=== PATIENT | male | born 1970 | race Caucasian/White ===

== ENCOUNTER 2016-08-16 08:34 | Observation (INO) | payer BC ==
[~2016-08-16] VITALS: Ht 185.4 cm; Wt 54.4 kg
[~2016-08-16 08:34] MED LIST: CLC100 PO; CRG25 PO; DIGO0.2518 PO; LISI-461 PO; TRIA37.5 PO; VALA1TAB PO
[2016-08-16] MEDS ORDERED: SODIUM CHLORIDE 0.9% 1000ML 1,000 ML IV STA (08:56)
[2016-08-16] MEDS ORDERED: HYDROmorphone INJ 1 MG/ML SYR IV STA ×3 (09:07→11:52)
--- NOTE | 2016-08-16 09:10 | EMERGENCY ROOM VISIT NOTE ---
History Report prepared by Sarina: Jewel Lima Under the Supervision of: Dr. Sven Asif M.D. First contact with patient: 08:43 Chief Complaint: BACK PAIN Stated Complaint: LOWER BACK PAIN History of Present Illness The patient is a 45 year old male who presents to the Emergency Room with complaints of persistent back pain that began 9 days ago following an injury while golfing. The patient states that he was golfing nine days prior to this visit when he tweaked his lower back. He then sneezed one day later, which he believes worsened the severity of his back injury. His pain is now worsened with range of motion. He also complains of pain radiating down his legs into his knees, which is worse on the left. The patient is experiencing some weakness in his lower extremities as well. He denies any loss of urinary or bowel control. He notes a history of lumbar back pain and he has been seeing a Chiropractor regularly for the past 6-7 years. The patient is on Coumadin and Digoxin daily. He has taken 5 Extra Strength Tylenol since last night. 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 A total of 10 systems reviewed and were otherwise negative. Past Medical & Surgical Medical Problems: (1) Hx of aortic valve stenosis (2) Hx of congestive heart failure Surgical Problems: (1) Hx of stentless aortic valve replacement Hx of congestive heart failure Family History No pertinent family histories discussed. Social History Smoking Status: Never Smoker Drug Use: none Marital Status: Housing Status: lives with significant other Current/Historical Medications Scheduled Aspirin (Aspirin Ec), 81 MG PO DAILY Carvedilol (Coreg), 25 MG PO BID Cholecalciferol (Vitamin D), 1,000 UNITS PO DAILY Digoxin (Digoxin), 25 MG PO DAILY Lisinopril (Zestril), 10 MG PO DAILY Sertraline (Zoloft), 25 MG PO DAILY Triamterene/Hctz (Dyazide 37.5MG/25MG), 1 TAB PO MAC Valacyclovir (Valtrex), 500 MG PO DAILY Allergies Coded Allergies: No Known Allergies (Unverified , 08/16/16) Physical Exam Vital Signs Date Time Temp Pulse Resp B/P Pulse Ox O2 Delivery O2 Flow Rate FiO2 08/16/16 11:30 59 16 119/60 98 Room Air 08/16/16 09:59 94 Room Air 08/16/16 09:58 58 18 107/68 94 Room Air 08/16/16 08:37 36.4 60 16 112/68 100 Room Air Physical Exam GENERAL: Patient is uncomfortable appearing and in moderate distress. HEENT: No acute trauma, normocephalic atraumatic, mucous membranes moist, no nasal congestion, no scleral icterus. NECK: No stridor, no adenopathy, no meningismus, trachea is midline. LUNGS: No dyspnea. Clear to auscultation and equal bilaterally. No wheeze, no rhonchi. HEART: Regular rate and rhythm. There is an audible click to auscultation. No murmurs, rubs, gallops appreciated. ABDOMEN: Soft, nontender, bowel sounds positive, no masses appreciated, no peritonitis. BACK: There is point tenderness over the lower lumbar midline spine. Mild tenderness of the left upper buttock. EXTREMITIES: Normal motion all extremities, no cyanosis, no edema. NEUROLOGIC: There is weakness of the left quad. Alert and oriented, no acute motor or sensory deficits, cranial nerves grossly intact. SKIN: No rash, no jaundice, no diaphoresis. Medical Decision & Procedures ER Provider Diagnostic Interpretation: Radiology results and stated below per my review and radiologist interpretation: LUMBAR SPINE MRI WITH AND WITHOUT CONTRAST HISTORY: low back pain, left quad weakness, perineal discomfort, coumadin TECHNIQUE: Multiplanar multisequence MRI of the lumbar spine was performed both before and after the intravenous administration of contrast. COMPARISON: None. FINDINGS: For the purpose of the report the L5-S1 disc space will be located on axial image 27 of 30. No fracture or subluxation. Mild disc desiccation disc space narrowing L4-L5 and L5-S1. The conus terminates at the T12-L1 disc space. Paraspinal soft tissues are unremarkable. No abnormal enhancement. L1-L2: No significant central canal or neural foraminal narrowing. L2-L3: No significant central canal or neural foraminal narrowing. L3-L4: No significant central canal or neural foraminal narrowing. L4-L5: Small focal central disc protrusion which abuts the transiting left L5 nerve root. No significant central canal or neural foraminal narrowing. L5-S1: Small broad-based posterior disc bulge without significant central canal or neural foraminal narrowing. IMPRESSION: 1. No fracture or subluxation within the lumbar spine. 2. Small focal central disc protrusion at L4-L5 which abuts the transiting left L5 nerve root. Electronically signed by: Kaleb Pittman M.D. 08/16/2016 11:34 AM Dictated Date/Time: 08/16/2016 11:29 AM Laboratory Results 08/16/16 09:05 Red Blood Count 4.52, Mean Corpuscular Volume 88.9, Mean Corpuscular Hemoglobin 30.5, Mean Corpuscular Hemoglobin Concent 34.3, Mean Platelet Volume 10.1, Neutrophils (%) (Auto) 67.2, Lymphocytes (%) (Auto) 21.3, Monocytes (%) (Auto) 7.8, Eosinophils (%) (Auto) 2.9, Basophils (%) (Auto) 0.6, Neutrophils # (Auto) 4.16, Lymphocytes # (Auto) 1.32, Monocytes # (Auto) 0.48, Eosinophils # (Auto) 0.18, Basophils # (Auto) 0.04 08/16/16 09:05 Test 08/16/16 09:05 White Blood Count 6.19 K/uL (4.8-10.8) Red Blood Count 4.52 M/uL (4.7-6.1) Hemoglobin 13.8 g/dL (14.0-18.0) Hematocrit 40.2 % (42-52) Mean Corpuscular Volume 88.9 fL (80-100) Mean Corpuscular Hemoglobin 30.5 pg (25-34) Mean Corpuscular Hemoglobin Concent 34.3 g/dl (32-36) Platelet Count 150 K/uL (130-400) Mean Platelet Volume 10.1 fL (7.4-10.4) Neutrophils (%) (Auto) 67.2 % Lymphocytes (%) (Auto) 21.3 % Monocytes (%) (Auto) 7.8 % Eosinophils (%) (Auto) 2.9 % Basophils (%) (Auto) 0.6 % Neutrophils # (Auto) 4.16 K/uL (1.4-6.5) Lymphocytes # (Auto) 1.32 K/uL (1.2-3.4) Monocytes # (Auto) 0.48 K/uL (0.11-0.59) Eosinophils # (Auto) 0.18 K/uL (0-0.5) Basophils # (Auto) 0.04 K/uL (0-0.2) RDW Standard Deviation 48.0 fL (36.4-46.3) RDW Coefficient of Variation 14.7 % (11.5-14.5) Immature Granulocyte % (Auto) 0.2 % Immature Granulocyte # (Auto) 0.01 K/uL (0.00-0.02) Prothrombin Time 44.0 SECONDS (9.0-12.0) Prothromb Time International Ratio 3.9 (0.9-1.1) Anion Gap 8.0 mmol/L (3-11) Est Creatinine Clear Calc Drug Dose 75.6 ml/min Estimated GFR () 112.2 Estimated GFR (Non- 96.8 BUN/Creatinine Ratio 18.4 (10-20) Calcium Level 8.8 mg/dl (8.5-10.1) Digoxin Level 1.0 ng/ml (0.8-2.0) Laboratory results as reviewed by me. Medications Administered Medications (Trade) Dose Ordered Sig/Ania Route Start Time Stop Time Status Last Admin Dose Admin Sodium Chloride (Nss 1000ml) 1,000 ml @ 999 mls/hr Q1H1M STAT IV 08/16/16 08:56 08/16/16 09:56 DC 08/16/16 09:11 999 MLS/HR Hydromorphone HCl (Dilaudid Inj) 1 mg NOW STAT IV 08/16/16 09:07 08/16/16 09:08 DC 08/16/16 09:11 1 MG Diazepam (Valium Inj) 5 mg NOW STAT IV 08/16/16 09:50 08/16/16 09:51 DC 08/16/16 09:56 5 MG Hydromorphone HCl (Dilaudid Inj) 1 mg NOW STAT IV 08/16/16 11:30 08/16/16 11:31 DC 08/16/16 11:33 1 MG Hydromorphone HCl (Dilaudid Inj) 1 mg NOW STAT IV 08/16/16 11:52 08/16/16 11:53 DC 08/16/16 12:12 1 MG Methylprednisolone Sodium Succinate (Solu-Medrol IV) 125 mg NOW STAT IV 08/16/16 11:52 08/16/16 11:53 DC 08/16/16 12:06 125 MG ED Course 0846: The patient was evaluated in room B10. A complete history and physical exam was performed. 0856: Ordered Sodium Chloride 1000 mL @ 999 mL/hr IV. 0907: Ordered Dilaudid Inj 1 mg IV. 0948: I checked on the patient at this time, his pain is improved, but he has increased spasm of the left leg. 0950: Ordered Valium 5 mg IV. 1130: Ordered Dilaudid 1 mg IV. 1149: I reevaluated the patient at this time, he is still too uncomfortable to go home. I will place a page for the [facility] Hospitalist. 1152: Ordered Solu-Medrol 125 mg IV, Dilaudid 1 mg IV. 1154: I placed a page for the [facility] Hospitalist at this time. 1156: I discussed the case with Dr. Noel Hill [facility] Hospitalist at this time, he will evaluate the patient for further treatment Medical Decision Blood pressure screening: Patient was found to have an elevated blood pressure and was referred to their primary doctor for recheck and further treatment. Blood pressure screening: Patient was found to have normal blood pressure on screening and does not require follow-up. Differential: Musculoskeletal, Disc Herniation, Fracture, Cord Compression, Discitis, Infectious, Aortic Pathology, Renal Colic, UTI/Pyelonephritis, Acute Exacerbation of Chronic Pain, Sciatica, Cauda Equina, amongst other pathologies entertained. 45 yr old male with left lower back pain radiating to left thigh. Does have TTP over lower lumbar midline spine. Questionable weakness of left quad, though normal strength otherwise and may be pain related. Unable to control pain. With history felt that MRI w wo con required to rule out acute surgical emergency. MRI with left L5 disc that while mild is likely cause of symptoms. No abdominal pain nor evidence that this is due to retroperitoneal bleeding nor aortic pathology. After multiple rounds of pain meds and discomfort will need to be evaluated for monitoring overnight as can not go home due to continued pain. IV steroids given. Hospitalist aware. Consults Time Called: 1154 Consulting Physician: Dr. Noel Hill [facility] Hospitalist Returned Call: 1156 I discussed the case with Dr. Cohen - [facility] Hospitalist at this time, he will evaluate the patient for further treatment Impression Primary Impression: Left sided sciatica Additional Impression: Intractable back pain Scribe Attestation The scribe's documentation has been prepared under my direction and personally reviewed by me in its entirety. I confirm that the note above accurately reflects all work, treatment, procedures, and medical decision making performed by me. Departure Information Dispostion Being Evaluated By Hospitalist Referrals Teja Hsu M.D. (PCP) Patient Instructions My [facility] [address] Problem Qualifiers
[2016-08-16 09:17] LABS: BASO % 0.6 %; BASO ABS # 0.04 K/uL (0-0.2); COMPLETE YES; EOS % 2.9 %; HEMATOCRIT 40.2 % (42-52); IG% 0.2 %; LYMPH % 21.3 %; LYMPH ABS # 1.32 K/uL (1.2-3.4); MEAN CELL VOLUME 88.9 fL (80-100); MEAN CORPUSCULAR HEMOGLOBIN 30.5 pg (25-34); MEAN CORPUSCULAR HGB CONC 34.3 g/dl (32-36); MEAN PLATELET VOLUME 10.1 fL (7.4-10.4); MONO % 7.8 %; NEUT % 67.2 %; PLATELET COUNT 150 K/uL (130-400); RED BLOOD COUNT 4.52 M/uL (4.7-6.1); WHITE BLOOD COUNT 6.19 K/uL (4.8-10.8)
[2016-08-16] MEDS ORDERED: CHOL100010 PO (09:21)
[2016-08-16] MEDS ORDERED: SERT25TA PO (09:21)
[2016-08-16] MEDS ORDERED: VALA500T60 PO (09:21)
[2016-08-16] MEDS ORDERED: CARV25TA PO (09:21)
[2016-08-16] MEDS ORDERED: ASPI81TA28 PO (09:21)
[2016-08-16] MEDS ORDERED: LNX25 PO (09:21)
[2016-08-16 09:30] LABS: BUN/CREATININE RATIO 18.4 (10-20); CREATININE 0.94 mg/dl (0.60-1.40)
[2016-08-16 09:31] LABS: CALCIUM 8.8 mg/dl (8.5-10.1)
[2016-08-16 09:38] LABS: INR 3.9 (0.9-1.1)
[2016-08-16] MEDS ORDERED: DIAZEPAM INJ 5 MG/ML 2 ML CARP IV STA (09:50)
[2016-08-16] MEDS ORDERED: GADAVIST IV PRN (10:45)
--- NOTE | 2016-08-16 11:35 | DIAGNOSTIC IMAGING REPORT ---
LUMBAR SPINE MRI WITH AND WITHOUT CONTRAST HISTORY: low back pain, left quad weakness, perineal discomfort, coumadin TECHNIQUE: Multiplanar multisequence MRI of the lumbar spine was performed both before and after the intravenous administration of contrast. COMPARISON: None. FINDINGS: For the purpose of the report the L5-S1 disc space will be located on axial image 27 of 30. No fracture or subluxation. Mild disc desiccation disc space narrowing L4-L5 and L5-S1. The conus terminates at the T12-L1 disc space. Paraspinal soft tissues are unremarkable. No abnormal enhancement. L1-L2: No significant central canal or neural foraminal narrowing. L2-L3: No significant central canal or neural foraminal narrowing. L3-L4: No significant central canal or neural foraminal narrowing. L4-L5: Small focal central disc protrusion which abuts the transiting left L5 nerve root. No significant central canal or neural foraminal narrowing. L5-S1: Small broad-based posterior disc bulge without significant central canal or neural foraminal narrowing. IMPRESSION: 1. No fracture or subluxation within the lumbar spine. 2. Small focal central disc protrusion at L4-L5 which abuts the transiting left L5 nerve root. Electronically signed by: Kaleb Pittman M.D. 08/16/2016 11:34 AM Dictated Date/Time: 08/16/2016 11:29 AM
[2016-08-16] MEDS ORDERED: METHYLPREDNISOLONE 125 MG VIAL IV STA (11:52)
--- NOTE | 2016-08-16 12:52 | History and Physical ---
History & Physical Date & Time of Service: August 16, 2016 at 12:41 Chief Complaint: Lower Back Pain Primary Care Physician: Teja Hsu M.D. History of Present Illness Source: patient, family This patient is a pleasant 45 y/o male that presents to the ER c/o back pain radiating to his left thigh for approximately 1 week. The patient played golf about a week ago. He noticed that his back was bothering him since then. The day after he played golf, he sneezed in the car. He felt excruciating pain in his back. It radiates down to the left thigh. He denies any numbness, tingling or weakness in his extremities. He does have pain in his groin. He denies any urinary or bowel incontinence. He has had problems with his back in the past and intermittently sees a chiropractor. He has tried Lidoderm with icy hot and Tylenol at home with no relief. In the emergency department, an MRI was performed. It is consistent with a disc bulge at L4-L5. No severe stenosis is noted. He received Dilaudid and Valium with decent pain relief. Past Medical/Surgical History Medical Problems: (1) Hx of aortic valve stenosis Status: Resolved s/p AVR with a mechanical valve 2. Last surgery was in 2004. A. fib (2) Hx of congestive heart failure Status: Chronic Surgical Problems: (1) Hx of stentless aortic valve replacement Status: Resolved Family History Patient's father and sister also had back problems. Social History Smoking Status: Never Smoker Drug Use: none Marital Status: Multi-Drug Resistant Organisms History of MDRO: No Allergies Coded Allergies: No Known Allergies (Unverified , 08/16/16) Home Medications Scheduled Aspirin (Aspirin Ec), 81 MG PO DAILY Carvedilol (Coreg), 25 MG PO BID Cholecalciferol (Vitamin D), 1,000 UNITS PO DAILY Digoxin (Digoxin), 25 MG PO DAILY Lisinopril (Zestril), 10 MG PO DAILY Sertraline (Zoloft), 25 MG PO DAILY Triamterene/Hctz (Dyazide 37.5MG/25MG), 1 TAB PO MAC Valacyclovir (Valtrex), 500 MG PO DAILY Physical Exam Vital Signs Date Time Temp Pulse Resp B/P Pulse Ox O2 Delivery O2 Flow Rate FiO2 08/16/16 11:30 59 16 119/60 98 Room Air 08/16/16 09:59 94 Room Air 08/16/16 09:58 58 18 107/68 94 Room Air 08/16/16 08:37 36.4 60 16 112/68 100 Room Air General Appearance: + moderate distress (in pain) Head: normocephalic Eyes: EOMI Neck: no JVD Respiratory/Chest: lungs clear Cardiovascular: + systolic murmur, + irregularly irregular Abdomen/GI: normal bowel sounds, non tender, soft Extremities/Musculoskelatal: no calf tenderness, no pedal edema Neurologic/Psych: no motor/sensory deficits, oriented x 3, + pertinent finding (neuro exam is limited secondary to pain) Skin: warm/dry Diagnostics Laboratory Results Results Past 24 Hours Test 08/16/16 09:05 Range/Units White Blood Count 6.19 4.8-10.8 K/uL Red Blood Count 4.52 4.7-6.1 M/uL Hemoglobin 13.8 14.0-18.0 g/dL Hematocrit 40.2 42-52 % Mean Corpuscular Volume 88.9 80-100 fL Mean Corpuscular Hemoglobin 30.5 25-34 pg Mean Corpuscular Hemoglobin Concent 34.3 32-36 g/dl Platelet Count 150 130-400 K/uL Mean Platelet Volume 10.1 7.4-10.4 fL Neutrophils (%) (Auto) 67.2 % Lymphocytes (%) (Auto) 21.3 % Monocytes (%) (Auto) 7.8 % Eosinophils (%) (Auto) 2.9 % Basophils (%) (Auto) 0.6 % Neutrophils # (Auto) 4.16 1.4-6.5 K/uL Lymphocytes # (Auto) 1.32 1.2-3.4 K/uL Monocytes # (Auto) 0.48 0.11-0.59 K/uL Eosinophils # (Auto) 0.18 0-0.5 K/uL Basophils # (Auto) 0.04 0-0.2 K/uL RDW Standard Deviation 48.0 36.4-46.3 fL RDW Coefficient of Variation 14.7 11.5-14.5 % Immature Granulocyte % (Auto) 0.2 % Immature Granulocyte # (Auto) 0.01 0.00-0.02 K/uL Prothrombin Time 44.0 9.0-12.0 SECONDS Prothromb Time International Ratio 3.9 0.9-1.1 Sodium Level 136 136-145 mmol/L Potassium Level 4.0 3.5-5.1 mmol/L Chloride Level 99 98-107 mmol/L Carbon Dioxide Level 29 21-32 mmol/L Anion Gap 8.0 3-11 mmol/L Blood Urea Nitrogen 17 7-18 mg/dl Creatinine 0.94 0.60-1.40 mg/dl Est Creatinine Clear Calc Drug Dose 75.6 ml/min Estimated GFR () 112.2 Estimated GFR (Non- 96.8 BUN/Creatinine Ratio 18.4 10-20 Random Glucose 144 70-99 mg/dl Calcium Level 8.8 8.5-10.1 mg/dl Digoxin Level 1.0 0.8-2.0 ng/ml Impression Assessment and Plan 45-year-old male presented to the emergency department complaining of severe lower back pain radiating to his left thigh. Found to have a mild disc protrusion L4-L5. Severe back pain/radiculopathy -Observe on medical floor -Orthopedic consult -Continue Dilaudid 1 mg IV every 3 hours as needed for pain -Begin Decadron 4 mg IV BID -Toradol 30 mg IV q 6 hr -Lidoderm patch -Flexeril 10 mg po TID prn -PT/OT eval History of aortic stenosis status post AVR, A. fib, rate controlled and history of congestive heart failure-no signs of decompensation -Continue outpatient regimen as follows: Carvedilol 25 mg BID, digoxin 0.25 mg daily, Dyazide daily, lisinopril 10 mg daily, aspirin 81 mg daily -hold today's dose of Coumadin as the patient's INR is supratherapeutic. Goal is 2.5-3.5 DVT prophylaxis -Coumadin -Teds, SCDs CODE STATUS -LEVEL I FULL CODE I agree with PA assessment and plan and have personally seen and examined pt myself Pt in moderate distress for lower back pain Noted tachycardia during exam Labs and MRI reviewed MSK: lower back pain tender on palpation Mild disc protrusion Orthopedics consulted Agree with pain management and decadron Hold coumadin for supratherapeutic INR, goal range 2.5-3.5 for mechanical valve Level of Care Med/Surg Resuscitation Status FULL RESUSCITATION VTE Prophylaxis Risk Level: Very Low Given or contraindicated: Warfarin (Coumadin), T.E.Lázaro Stockings, SCD's
[2016-08-16 12:55] VITALS: O2SAT 98; Ht 185.4 cm; Wt 54.4 kg
[2016-08-16] MEDS ORDERED: POLYETHYLENE (MIRALAX) 17 GM PACK PO PRN (13:00)
[2016-08-16] MEDS ORDERED: HYDROmorphone INJ 1 MG/ML SYR IV PRN (13:00)
[2016-08-16] MEDS ORDERED: ONDANSETRON INJ 2 MG/ML 2 ML VIAL IV PRN (13:00)
[2016-08-16] MEDS ORDERED: MAGNESIUM HYDROXIDE SUSP 30 ML UDC PO PRN (13:00)
[2016-08-16] MEDS ORDERED: ACETAMINOPHEN 325 MG TAB PO PRN (13:00)
[2016-08-16] MEDS ORDERED: CYCLOBENZAPRINE HCL 10 MG TAB PO PRN (13:00)
[2016-08-16] MEDS ORDERED: IV FLUIDS COMPLETED PRN (13:45)
[2016-08-16] MEDS: KETOROLAC TROMETHAMINE 30 MG/ML VIAL IV PRN (13:51)
[2016-08-16] MEDS ORDERED: CYCLOBENZAPRINE HCL 10 MG TAB ONE (13:55)
[2016-08-16 15:03] VITALS: BP 113/73; PULSE 73; TEMP 36.4; O2SAT 98
[2016-08-16 16:00] VITALS: O2SAT 98
[2016-08-16] MEDS ORDERED: DIGOXIN 0.25 MG TAB PO SCH (16:00)
[2016-08-16] MEDS: DEXAMETHASONE INJ 4 MG in SYRINGE 0 ML IV SCH (17:53)
[2016-08-16 20:30] VITALS: BP 111/72; PULSE 63; O2SAT 98
[2016-08-16] MEDS: CARVEDILOL 25 MG TAB PO SCH (20:34)
[2016-08-16 22:55] VITALS: BP 100/67; PULSE 80; TEMP 36.6; O2SAT 95
[2016-08-17] MEDS ORDERED: ZOLPIDEM TARTRATE 5 MG TAB PO PRN (00:30)
[2016-08-17] MEDS: DEXAMETHASONE INJ 4 MG in SYRINGE 0 ML IV SCH (05:29)
[2016-08-17] MEDS: KETOROLAC TROMETHAMINE 30 MG/ML VIAL IV PRN (05:51)
[2016-08-17 05:56] LABS: INR 3.8 (0.9-1.1); PROTHROMBIN TIME (PATIENT) 42.9 SECONDS (9.0-12.0)
[2016-08-17 06:17] LABS: BUN/CREATININE RATIO 20.2 (10-20); CALCIUM 8.6 mg/dl (8.5-10.1); CREATININE 0.68 mg/dl (0.60-1.40); POTASSIUM 3.9 mmol/L (3.5-5.1)
[2016-08-17 07:57] VITALS: BP 98/64; PULSE 78; TEMP 36.7; O2SAT 97
[2016-08-17 08:11] VITALS: O2SAT 97
--- NOTE | 2016-08-17 08:39 | ORTHOPEDIC CONSULTATION ---
DATE OF CONSULTATION: 08/17/2016 CHIEF COMPLAINT: Back and left anterior thigh pain. HISTORY OF PRESENT ILLNESS: This is a very pleasant 45-year-old male who had intermittent history of back pain over the years, marked increase in discomfort over the past week or so. It began with his knees about 10 days ago while driving. Then he was golfing recently also exacerbating back pain. He felt the pain across the lumbosacral junction and down the groin, anterior thigh on the left. It is not a classic radicular pattern. The right lower extremity is essentially asymptomatic. IMAGING: A lumbar spine 08/16/2016 MRI demonstrates evidence of modest disc desiccation protrusion at the 4-5, 5-1 levels. There is perhaps a hint of neural rotation secondary to some encroachment of the L4 root on the left. Overall, it is somewhat underwhelming. ASSESSMENT: Acute on chronic back pain. PLAN: At this time, see no indication for any surgical intervention. I would recommend we initiate physical therapy, anti-inflammatories only.
[2016-08-17] MEDS: CARVEDILOL 25 MG TAB PO SCH (08:58)
[2016-08-17] MEDS ORDERED: LIDODERM (LIDOCAINE) PATCH 5% TD SCH (09:00)
[2016-08-17] MEDS ORDERED: TRIAMTERENE/HCTZ 37.5/25MG CAP PO SCH (09:00)
[2016-08-17] MEDS ORDERED: LISINOPRIL 10 MG TAB PO SCH (09:00)
[2016-08-17] MEDS ORDERED: ASPIRIN 81 MG ECTAB PO SCH (09:00)
[2016-08-17] MEDS ORDERED: SERTRALINE HCL 50 MG TAB PO SCH (09:00)
[2016-08-17] MEDS ORDERED: LDDP5 TD (10:05)
[2016-08-17] MEDS ORDERED: CYCL5TAB PO (10:05)
[2016-08-17] MEDS ORDERED: OXYC-57 PO (10:05)
[2016-08-17] MEDS ORDERED: METH4PAK PO (10:05)
[2016-08-17] MEDS ORDERED: IBUP-1105 PO (10:05)
--- NOTE | 2016-08-17 10:13 | Discharge Instructions ---
Discharge Instructions Date of Service August 17, 2016. Admission Reason for Admission: Intractable Back Pain Discharge Discharge Diagnosis / Problem: Intractable back pain, minimal disc protrusion L4-L5 level Discharge Goals Goal(s): Decrease discomfort, Improve function, Increase independence Activity Recommendations Activity Limitations: resume your previous activity Lifting Limitations: no more than 5 pounds (for two weeks) Exercise/Sports Limitations: as tolerated May Resume Sexual Activity: when tolerated Shower/Bathe: no limitations Driving or Machine Use: do not drive after taking Flexeril OR Percocet . Instructions / Follow-Up Instructions / Follow-Up Medications: - MEDROL: follow instructions, you can take all of the day one tablets today and then start day 2 tomorrow, this is steroid taper to decrease inflammation - IBUPROFEN: 600mg (3 of the 200mg tablets) take three times a day with meals for the next 5 days then then just use as needed, always take with food - LIDODERM PATCH: apply once a day as prescribed, may be expensive depending on insurance coverage, you do not need to get filled if too expensive - FLEXERIL: take as needed for muscle spasms, will make you sleepy, do not drive after taking this medication, very effective at night to help sleep, you can take 10mg at bedtime if 5mg is not sufficient - PERCOCET: you can get this filled if the above medications are not sufficient to control the pain, take 1 tablet every 4 hours as needed for pain, DO NOT DRIVE, DO NOT TAKE MORE THAN PRESCRIBED Complete outpatient physical therapy, script provided, you can choose any location You can utilize heat but only use for 20 minutes at at time, 3-4 times a day, NEVER sleep with heating pad No heavy lifting, no bending or twisting to sheepskin pickler something FOLLOW UP - Dr. Hsu in one week, call to schedule an appointment to see how you are progressing - you can be referred to Dr. Diaz in the near future if the pain does not resolve with the above measures Current Hospital Diet Patient's current hospital diet: Low Sodium Diet (2gm Na) Discharge Diet Recommended Diet: Low Sodium Diet (2gm Na) Pending Studies Studies pending at discharge: no Medical Emergencies . Who to Call and When: Medical Emergencies: If at any time you feel your situation is an emergency, please call 911 immediately. . Non-Emergent Contact Non-Emergency issues call your: Primary Care Provider Call Non-Emergent contact if: your pain is not controlled, your pain is worsening, you have any medication questions . Past History Medical & Surgical History: (1) Intractable back pain . "Provider Documentation" section prepared by Mook Galeano. . VTE Core Measure Inpt VTE Proph given/why not?: Warfarin (Coumadin), T.E.DAngela Stockings, SCD's [place] Drug Monitoring Program Search Results: no issues identified
[2016-08-17 10:25] VITALS: BP 98/64; PULSE 78; TEMP 36.7; O2SAT 97
--- NOTE | 2016-08-17 14:47 | Discharge Summary ---
Discharge Summary Date of Service August 17, 2016. Discharge Summary Admission Date: August 16, 2016 at 12:58 Discharge Date: August 17, 2016 Discharge Disposition: Home Principal Diagnosis: Lumbar back pain Problems/Secondary Diagnoses: h/o Aortic valve replacement Paroxysmal atrial fibrillation h/o congestive heart failure, unknown type Procedures: none Consultations: Orthopedic surgery - Dr Diaz Medication Reconciliation New Medications: Cyclobenzaprine Hcl (Flexeril) 5 Mg Tab 5 MG PO TID PRN for Muscle Spasms, #30 TAB PRN Ibuprofen (Ibuprofen) 200 Mg Tab 600 MG PO TID PRN for Pain for 7 Days, #63 TAB 0 Refills Methylprednisolone (Medrol Dosepak) 4 Mg Earl 1 PKT PO UD for 6 Days, #1 PKT Oxycodone/Acetaminophen 5MG/325MG (Percocet 5MG/325MG) Tab 1 TABLET PO Q4H PRN for Pain, #20 TAB Lidocaine (Lidocaine) 1 Patch Tdsy 1 PATCH TD QAM, #14 PATCH 0 Refills Continued Medications: Aspirin (Aspirin Ec) 81 Mg Tab 81 MG PO DAILY Carvedilol (Coreg) 25 Mg Tab 25 MG PO BID, TAB Cholecalciferol (Vitamin D) 1,000 Unit Tab 1000 UNITS PO DAILY Digoxin (Digoxin) 0.25 Mg Tab 25 MG PO DAILY Lisinopril (Zestril) 10 Mg Tab 10 MG PO DAILY, 0 Refills Sertraline (Zoloft) 25 Mg Tab 25 MG PO DAILY, TAB Triamterene/Hctz (Dyazide 37.5MG/25MG) Cap 1 TAB PO MAC, 0 Refills Valacyclovir (Valtrex) 500 Mg Tab 500 MG PO DAILY, TAB Discharge Exam Patient feeling better this AM with Lidoderm patch, Decadron and Flexeril. Evaluated by orthopedics, no surgery needed, recommended physical therapy, pain control, rest. Discussed with patient, he was interested in getting out of hospital in the morning. Review of Systems: Constitutional: No chills, No fatigue, No fever, No problem reported, No sweats, No weakness, No weight loss Eyes: No diplopia, No discharge, No eye pain, No problem reported, No redness, No worsening of vision ENT: No dental problems, No hearing loss, No nasal symptoms, No problem reported, No sore throat, No tinnitus, No trouble swallowing, No unusual epistaxis Respiratory: No cough, No dyspnea at rest, No dyspnea on exertion, No hemoptysis, No problem reported, No shortness of breath, No sputum, No wheezing Cardiovascular: No PND, No chest pain, No claudication, No edema, No orthopnea, No palpitations, No problem reported Abdomen: No GI bleeding, No constipation, No diarrhea, No nausea, No pain, No problem reported, No vomiting Musculoskeletal: + joint pain (lower back, less intense), No calf pain, No muscle pain, No problem reported, No swelling Genitourinary - Male: No dysuria, No hematuria, No urinary frequency, No urinary urgency Neurologic: No balance problems, No memory loss, No numbness/tingling, No paralysis, No problem reported, No vertigo, No weakness Endocrine: No excessive thirst, No excessive urination, No fatigue, No problem reported Hematologic / Lymphatic: No abnormal bleeding/bruising, No clotting problems , No night sweats, No problem reported, No swollen lymph nodes Integumentary: No bleeding, No color change, No itch, No new/changing skin lesions, No problem reported, No rash Physical Exam: General Appearance: WD/WN, no apparent distress Eyes: normal inspection, EOMI, sclerae normal ENT: normal ENT inspection, hearing grossly normal, pharynx normal Neck: supple, no adenopathy, no JVD, trachea midline Respiratory/Chest: chest non-tender, lungs clear, normal breath sounds, no respiratory distress, no accessory muscle use Cardiovascular: regular rate, rhythm, no edema, no gallop, no JVD, no murmur , normal peripheral pulses Abdomen / GI: normal bowel sounds, non tender, soft, no organomegaly Extremities: normal inspection, no calf tenderness, normal capillary refill , no pedal edema, non-tender, pelvis stable, + pertinent finding (mild limited ROM of lumbar spine due to pain) Neurologic/Psychiatric: knife cutter II-XII nml as tested, no motor/sensory deficits , alert, normal mood/affect, normal reflexes, oriented x 3 Skin: normal color Hospital Course 45-year-old male presented to the emergency department complaining of severe lower back pain radiating to his left thigh. Found to have a mild disc protrusion L4-L5. Severe back pain in lumbar region: much improved overnight with treatment evaluated by Dr. Diaz, no need for surgery, disc protrusion is minimal, not impressive, no radiculopathy will d/c home on Medrol dose earl, Ibuprofen for 5 days, Lidoderm patch, Flexeril PRN and Percocet PRN outpatient PT, script provided can use heat intermittently instructed to rest, no lifting, bending, twisting follow up with Dr. Hsu in a week History of aortic stenosis status post AVR, A. fib, rate controlled and history of congestive heart failure-no signs of decompensation -Continue outpatient regimen as follows: Carvedilol 25 mg BID, digoxin 0.25 mg daily, Dyazide daily, lisinopril 10 mg daily, aspirin 81 mg daily Coumadin, Goal is 2.5-3.5 DVT prophylaxis -Coumadin -Teds, SCDs CODE STATUS -LEVEL I FULL CODE Total Time Spent: Less than 30 minutes This includes examination of the patient, discharge planning, medication reconciliation, and communication with other providers. Discharge Instructions Please refer to the electronic Patient Visit Report (Discharge Instructions) for additional information. Follow-Up Dr. Hsu in one week Additional Copies To Ta Diaz D.O.; Teja Hsu M.D.
== END 2016-08-17 12:30 | disposition home or self-care (01) ==
LOC: ENRESERVDT → ENRESERVTM → C.EDB 08:36 → C.3E 12:58
PROVIDERS: ADMIT Hospitalist; ATTEND Internal Medicine
DX: M54.42 Lumbago with sciatica, left side (principal); M51.26 Other intervertebral disc displacement, lumbar region; Z95.2 Presence of prosthetic heart valve; Z79.82 Long term (current) use of aspirin; I48.0 Paroxysmal atrial fibrillation

== ENCOUNTER 2017-03-29 21:02 | Inpatient (IN) | payer BC, OTHER ==
[~2017-03-29] VITALS: Ht 185.4 cm; Wt 67.5 kg
[~2017-03-29 21:02] MED LIST changes: +ASPI81TA28 PO; +CARV25TA PO; +CHOL100010 PO; -CLC100 PO; -CRG25 PO; -DIGO0.2518 PO; +IBUP-1105 PO; +LDDP5 TD; +LNX25 PO; +SERT25TA PO; -VALA1TAB PO; +VALA500T60 PO
[2017-03-29] MEDS ORDERED: SODIUM CHLORIDE 0.9% 500ML 500 ML IV STA (22:41)
[2017-03-29] MEDS ORDERED: ACETAMINOPHEN 500 MG TAB PO STA (22:41)
[2017-03-29] MEDS ORDERED: ALBUT/IPRATROP 3MG/0.5MG NEB 3 ML VIAL INH STA (22:46)
--- NOTE | 2017-03-29 23:02 | DIAGNOSTIC IMAGING REPORT ---
CHEST ONE VIEW PORTABLE CLINICAL HISTORY: Sepsis COMPARISON STUDY: No previous studies for comparison. FINDINGS: The heart is enlarged. There are postsurgical changes of a midline sternotomy and by bowel replacement. There are patchy airspace opacities within the right upper lobe, suspicious for pneumonia. Radiographic follow-up subsequent antibiotic therapy is recommended.[ IMPRESSION: Peripheral right upper lobe airspace opacities, suspicious for pneumonia given history of sepsis. Films subsequent to treatment are recommended in follow-up Electronically signed by: Jaren Armstrong M.D. 03/29/2017 11:00 PM Dictated Date/Time: 03/29/2017 10:59 PM
[2017-03-29] MEDS ORDERED: CEFTRIAXONE SOD INJ 1 GM ADDVIAL IV STA (23:16)
[2017-03-29 23:21] LABS: BASO % 0.3 %; BASO ABS # 0.02 K/uL (0-0.2); EOS % 1.9 %; EOS ABS # 0.14 K/uL (0-0.5); HEMATOCRIT 37.2 % (42-52); HEMOGLOBIN 12.5 g/dL (14.0-18.0); IG# 0.02 K/uL (0.00-0.02); LYMPH % 13.1 %; LYMPH ABS # 0.96 K/uL (1.2-3.4); MEAN CELL VOLUME 89.9 fL (80-100); MEAN CORPUSCULAR HEMOGLOBIN 30.2 pg (25-34); MEAN CORPUSCULAR HGB CONC 33.6 g/dl (32-36); MEAN PLATELET VOLUME 10.2 fL (7.4-10.4); MONO % 11.9 %; MONO ABS # 0.87 K/uL (0.11-0.59); NEUT % 72.5 %; PLATELET COUNT 135 K/uL (130-400); RED CELL DISTRIBUTION WIDTH CV 14.5 % (11.5-14.5); RED CELL DISTRIBUTION WIDTH SD 47.8 fL (36.4-46.3); WHITE BLOOD COUNT 7.31 K/uL (4.8-10.8)
[2017-03-29 23:34] LABS: INR 2.2 (0.9-1.1); PTT PATIENT 38.1 SECONDS (21.0-31.0)
[2017-03-29 23:48] LABS: ALBUMIN 3.7 gm/dl (3.4-5.0); ALT/SGPT 29 U/L (12-78); AST/SGOT 21 U/L (15-37); BLOOD UREA NITROGEN 16 mg/dl (7-18); CALCIUM 8.5 mg/dl (8.5-10.1); CARBON DIOXIDE 28 mmol/L (21-32); CREATININE 1.05 mg/dl (0.60-1.40); GLUCOSE 111 mg/dl (70-99); POTASSIUM 3.6 mmol/L (3.5-5.1); SODIUM 133 mmol/L (136-145)
[2017-03-29 23:52] LABS: ALKALINE PHOSPHATASE 61 U/L (45-117); TOTAL PROTEIN 7.6 gm/dl (6.4-8.2)
[2017-03-30] VITALS (7 sets, daily range): BP systolic 94–115; BP diastolic 62–78; PULSE 69–88; TEMP 36.5–37; O2SAT 94–100; Ht 185.4 cm; Wt 67.5 kg
[2017-03-30 00:01] LABS: INFLUENZA B ANTIGEN Neg for Influ B (NEG)
[2017-03-30] MEDS ORDERED: SODIUM CHLORIDE 0.9% 500ML 500 ML IV STA (01:11)
[2017-03-30] MEDS ORDERED: OPTIRAY 320 IV PRN (01:30)
[2017-03-30] MEDS ORDERED: VANCOMYCIN INJ 1,000 MG in SODIUM CHLORIDE 0.9% 250ML 250 ML IV STA (01:59)
[2017-03-30] MEDS ORDERED: ONDANSETRON 8MG OD TAB PO PRN (02:00)
[2017-03-30] MEDS ORDERED: ONDANSETRON INJ 2 MG/ML 2 ML VIAL IV PRN (02:00)
[2017-03-30] MEDS ORDERED: VANCOMYCIN INJ 1,750 MG in SODIUM CHLORIDE 0.9% 500ML 500 ML IV SCH (03:00)
[2017-03-30] MEDS ORDERED: LEVALBUTEROL/IPRATROPIUM NEB INH SCH (03:00)
--- NOTE | 2017-03-30 03:49 | EMERGENCY ROOM VISIT NOTE ---
History First contact with patient: 22:23 Chief Complaint: COUGH Stated Complaint: COUGHING (DRY & PRODUCTIIVE) SORETHROAT,FEVER History of Present Illness The patient is a 46 year old male who presents to the Emergency Room with complaints of cough, congestion, body aches and pains and fever for the past day has an occasional cough for the past month. Patient is on Coumadin for A. fib and aortic valve replacement. He has a history of aortic stenosis as a child does have multiple surgeries. He has had CHF in the past. He follows with cardiology at [place]. INR 2.6 one month ago. Patient denies abdominal pain, vomiting, diarrhea, earache, urinary symptoms. He's been around sick people. He did not get the flu shot. Review of Systems See HPI for pertinent positives & negatives. A total of 10 systems reviewed and were otherwise negative. Past Medical/Surgical History Medical Problems: (1) Hx of aortic valve stenosis (2) Hx of congestive heart failure (3) Pneumonia Surgical Problems: (1) Hx of stentless aortic valve replacement A. fib Social History Smoking Status: Never Smoker Smokeless Tobacco Use: No Alcohol Use: occasionally Drug Use: none Marital Status: Housing Status: lives with significant other Current/Historical Medications Scheduled Aspirin (Aspirin Ec), 81 MG PO DAILY Carvedilol (Coreg), 25 MG PO BID Digoxin (Digoxin), 0.25 MG PO DAILY Lisinopril (Zestril), 10 MG PO DAILY Sertraline (Zoloft), 25 MG PO DAILY Triamterene/Hctz (Dyazide 37.5MG/25MG), 1 TAB PO DAILY Valacyclovir (Valtrex), 500 MG PO DAILY Physical Exam Vital Signs Date Time Temp Pulse Resp B/P (MAP) Pulse Ox O2 Delivery O2 Flow Rate FiO2 03/30/17 03:04 63 15 96 03/30/17 03:01 98/60 03/30/17 02:49 69 17 95 03/30/17 02:43 37.0 03/30/17 02:34 67 15 94 03/30/17 02:31 109/57 03/30/17 02:19 70 17 98 03/30/17 02:14 67 14 106/58 96 Room Air 03/30/17 02:14 69 03/30/17 00:55 70 16 106/62 94 Room Air 03/30/17 00:28 Room Air 03/30/17 00:13 70 15 102/56 95 Room Air 03/29/17 22:22 96 Room Air 03/29/17 21:26 38.2 72 19 96/59 96 Room Air Physical Exam VITALS: Vitals are noted on the nurse's note and reviewed by myself. Vital signs febrile and hypotensive. GENERAL: White male, in no acute distress, nondiaphoretic, well-developed well- nourished. SKIN: The skin was without rashes, erythema, edema, or bruising. There is no tenting of the skin. Capillary reflex less than 2 seconds. HEAD: Normocephalic atraumatic. EARS: External auditory canals clear, tympanic membranes pearly nicholson without erythema or effusion bilaterally. EYES: Pupils equal round and reactive to light and accommodation. Conjunctivae without injection, sclerae without icterus. Extraocular movements intact. NOSE: Patent, turbinates without inflammation or discharge. No sinus tenderness. MOUTH: Mucous membranes mildly dry. Pharynx without erythema or exudate. Uvula midline. Airway patent. Tongue does not deviate. NECK: Supple without nuchal rigidity. No lymphadenopathy. No thyromegaly. Cervical spine is nontender. No JVD. HEART: Regular rate and rhythm + murmur LUNGS: Mild diffuse end expiratory wheezes, without rales or rhonchi. No retractions or accessory muscle use. ABDOMEN: Positive bowel sounds x 4. Normal tympanic percussion. Soft, nontender, without masses or organomegaly. Larios sign negative. No guarding or rebound tenderness. MUSCULOSKELETAL: No muscle atrophy, erythema, or edema noted. NEURO: Patient was alert and oriented to person place and time. Normal sensation to light and sharp touch. No focal neurological deficits. Medical Decision & Procedures Laboratory Results 03/29/17 23:00 Red Blood Count 4.14, Mean Corpuscular Volume 89.9, Mean Corpuscular Hemoglobin 30.2, Mean Corpuscular Hemoglobin Concent 33.6, Mean Platelet Volume 10.2, Neutrophils (%) (Auto) 72.5, Lymphocytes (%) (Auto) 13.1, Monocytes (%) (Auto) 11.9, Eosinophils (%) (Auto) 1.9, Basophils (%) (Auto) 0.3, Neutrophils # (Auto ) 5.30, Lymphocytes # (Auto) 0.96, Monocytes # (Auto) 0.87, Eosinophils # (Auto ) 0.14, Basophils # (Auto) 0.02 03/29/17 23:00 Test 03/29/17 23:00 03/29/17 23:13 03/29/17 23:23 03/30/17 00:43 White Blood Count 7.31 K/uL (4.8-10.8) Red Blood Count 4.14 M/uL (4.7-6.1) Hemoglobin 12.5 g/dL (14.0-18.0) Hematocrit 37.2 % (42-52) Mean Corpuscular Volume 89.9 fL (80-100) Mean Corpuscular Hemoglobin 30.2 pg (25-34) Mean Corpuscular Hemoglobin Concent 33.6 g/dl (32-36) Platelet Count 135 K/uL (130-400) Mean Platelet Volume 10.2 fL (7.4-10.4) Neutrophils (%) (Auto) 72.5 % Lymphocytes (%) (Auto) 13.1 % Monocytes (%) (Auto) 11.9 % Eosinophils (%) (Auto) 1.9 % Basophils (%) (Auto) 0.3 % Neutrophils # (Auto) 5.30 K/uL (1.4-6.5) Lymphocytes # (Auto) 0.96 K/uL (1.2-3.4) Monocytes # (Auto) 0.87 K/uL (0.11-0.59) Eosinophils # (Auto) 0.14 K/uL (0-0.5) Basophils # (Auto) 0.02 K/uL (0-0.2) RDW Standard Deviation 47.8 fL (36.4-46.3) RDW Coefficient of Variation 14.5 % (11.5-14.5) Immature Granulocyte % (Auto) 0.3 % Immature Granulocyte # (Auto) 0.02 K/uL (0.00-0.02) Prothrombin Time 22.8 SECONDS (9.0-12.0) Prothromb Time International Ratio 2.2 (0.9-1.1) Activated Partial Thromboplast Time 38.1 SECONDS (21.0-31.0) Partial Thromboplastin Ratio 1.5 Anion Gap 7.0 mmol/L (3-11) Est Creatinine Clear Calc Drug Dose 84.9 ml/min Estimated GFR () 97.5 Estimated GFR (Non- 84.1 BUN/Creatinine Ratio 15.5 (10-20) Calcium Level 8.5 mg/dl (8.5-10.1) Magnesium Level 2.1 mg/dl (1.8-2.4) Total Bilirubin 1.0 mg/dl (0.2-1) Aspartate Amino Transf (AST/SGOT) 21 U/L (15-37) Alanine Aminotransferase (ALT/SGPT) 29 U/L (12-78) Alkaline Phosphatase 61 U/L (45-117) Troponin I < 0.015 ng/ml (0-0.045) Pro-B-Type Natriuretic Peptide 873 pg/ml (0-450) Total Protein 7.6 gm/dl (6.4-8.2) Albumin 3.7 gm/dl (3.4-5.0) Globulin 3.9 gm/dl (2.5-4.0) Albumin/Globulin Ratio 0.9 (0.9-2) Digoxin Level 1.1 ng/ml (0.8-2.0) Bedside Lactic Acid Venous 0.51 mmol/L (0.90-1.70) Bedside Troponin I < 0.030 ng/ml (0-0.045) Influenza Type A Antigen Neg for Influ A (NEG) Influenza Type B Antigen Neg for Influ B (NEG) Urine Color YELLOW Urine Appearance CLEAR (CLEAR) Urine pH 6.5 (4.5-7.5) Urine Specific [place] 1.015 (1.000-1.030) Urine Protein NEG (NEG) Urine Glucose (UA) NEG (NEG) Urine Ketones TRACE (NEG) Urine Occult Blood TRACE (NEG) Urine Nitrite NEG (NEG) Urine Bilirubin NEG (NEG) Urine Urobilinogen POS (NEG) Urine Leukocyte Esterase NEG (NEG) Urine RBC 5-10 /hpf (0-4) Urine WBC 0 /hpf (0-5) Urine Epithelial Cells 0-5 /lpf (0-5) Urine Bacteria NEG (NEG) Urine Hyaline Casts 0 /lpf (0-5) Medications Administered Medications (Trade) Dose Ordered Sig/Ania Route Start Time Stop Time Status Last Admin Dose Admin Acetaminophen (Tylenol Tab) 1,000 mg NOW STAT PO 03/29/17 22:41 03/29/17 22:44 DC 03/29/17 23:27 1,000 MG Sodium Chloride 500 ml @ 999 mls/hr Q31M STAT IV 03/29/17 22:41 03/29/17 23:11 DC 03/29/17 23:30 999 MLS/HR Albuterol/ Ipratropium (Duoneb) 3 ml NOW STAT INH 03/29/17 22:46 03/29/17 22:47 DC 03/29/17 23:28 3 ML Ceftriaxone Sodium (Rocephin Inj) 1 gm NOW STAT IV 03/29/17 23:16 03/29/17 23:17 DC 03/29/17 23:28 1 GM Sodium Chloride 500 ml @ 999 mls/hr Q31M STAT IV 03/30/17 01:11 03/30/17 01:41 DC 03/30/17 02:08 999 MLS/HR Vancomycin HCl 1750 mg/Sodium Chloride 535 ml @ 200 mls/hr TODAY@0300 IV 03/30/17 03:00 03/30/17 05:41 03/30/17 03:34 200 MLS/HR ED Course Prior records/ancillary studies reviewed. Triage Nursing notes reviewed. Additional history obtained from family. The patient's history was concerning for fever. Differential diagnosis: Etiologies such as viral syndrome, otitis, pharyngitis, pneumonia, influenza, meningitis, urinary tract infection, sepsis, bacteremia, as well as others were entertained. Physical examination: Patient is alert and mildly ill-appearing ER treatment provided: IV fluids, Tylenol, nebulizer, Rocephin On reassessment the patient felt better. Diagnostics interpreted by me: ECG: Irregularly irregular with a left bundle branch block and a left axis deviation with ventricular rate of 73. Impression A. fib with a left bundle branch block interpreted by myself rate control. Patient has a known history of A. fib. The labs revealed negative lactic acid. Blood cultures pending Imaging studies: CT of the chest with ill-defined nodular airspace consolidation in the right upper lobe partial collapse. Consolidation left lower lobe. Chest x-ray concerning for right upper lobe pneumonia per radiology Consultation: A consultation was placed with hospitalist, Dr. Werner. The case was discussed and diagnostics were reviewed. The patient was evaluated in the ER for further treatment. This appears to be consistent with pneumonia. Patient had an abnormal pneumonia on x-ray so imaging was ordered. He was started on antibiotics. Blood cultures pending. Isolation precautions were initiated. Patient has no known history of TB. Patient did feel better after being medicated as above. He was not hypoxic. Blood pressure did improve. INR was therapeutic. He will be evaluated by medicine for admission. By the evaluation outlined above emergent etiologies such as otitis, pharyngitis, meningitis, urinary tract infection, as well as others were deemed relatively unlikely. The pt informed about the findings as listed above. All questions were answered and pleased with the treatment. Case reviewed with my attending Medical Decision As above Medication Reconcilliation Current Medication List: was personally reviewed by me Blood Pressure Screening Patient's blood pressure: Low blood pressure Impression Primary Impression: Pneumonia Departure Information Dispostion Being Evaluated By Hospitalist Condition FAIR Referrals Teja Hsu M.D. (PCP) Patient Instructions [facility] Problem Qualifiers Primary Impression: Pneumonia Pneumonia type: due to unspecified organism Laterality: bilateral Lung location: unspecified part of lung Qualified Codes: J18.9 - Pneumonia, unspecified organism
[2017-03-30] MEDS ORDERED: TUBERCULIN SKIN TEST 5 TU in SYRINGE 0 ML ID ONE (04:00)
[2017-03-30] MEDS ORDERED: IPRATROPIUM BROMIDE NEB SOLN 0.02% 2.5 ML VIAL INH PRN (04:15)
[2017-03-30] MEDS ORDERED: LEVALBUTEROL 1.25MG/0.5ML NEB INH PRN (04:15)
[2017-03-30] MEDS ORDERED: PIPERACILL/TAZOBAC CONSULT ACTIVE PRN (04:30)
[2017-03-30] MEDS ORDERED: VANCOMYCIN CONSULT ACTIVE PRN (04:30)
[2017-03-30] MEDS: LEVOFLOXACIN / D5W 500 MG in PREMIXED IN D5W 100 ML IV SCH (04:44)
[2017-03-30] MEDS: METHYLPREDNISOLONE IV 40 MG in SYRINGE 0 ML IV SCH ×2 (04:45→11:53)
[2017-03-30] MEDS ORDERED: PIPERACILL/TAZOBAC IV 3.375 GM in DEXTROSE 5% 100ML IV ONE (06:00)
[2017-03-30] MEDS ORDERED: INFLUENZA ADMINISTRATION CHARGE ONE (06:00)
[2017-03-30] MEDS ORDERED: INFLUENZA VIRUS QUAD VACCINE 0.5 ML SYR IM. ONE (06:00)
[2017-03-30] MEDS ORDERED: PIPERACILL/TAZOBAC IV 3.375 GM in DEXTROSE 5% 100ML 100 ML IV SCH (06:00)
--- NOTE | 2017-03-30 06:32 | History and Physical ---
History & Physical Date & Time of Service: Mar 30, 2017 at 06:31 Chief Complaint: Pneumonia Primary Care Physician: Teja Hsu M.D. History of Present Illness Source: patient, spouse, hospital records The patient is a 46-year-old male who presents to the emergency department with progressively worsening cough, chest congestion, generalized body aches and pains, with development of temperature and progressive fatigue over the past several days. He has had multiple sick exposures, and works in the [employer] department at [employer]. He has had an AVR and MVR, is on chronic anticoagulation with warfarin, follows with cardiology at [facility]. Past Medical/Surgical History Medical Problems: (1) Hx of aortic valve stenosis Status: Resolved (2) Hx of congestive heart failure Status: Chronic Surgical Problems: (1) Hx of stentless aortic valve replacement Status: Resolved Family History Noncontributory Social History Smoking Status: Never Smoker Smokeless Tobacco Use: No Drug Use: none Marital Status: Housing status: lives with family Occupational Status: employed Immunizations History of Influenza Vaccine: Unknown History of Tetanus Vaccine?: Unknown History of Hepatitis B Vaccine: Unknown Multi-Drug Resistant Organisms History of MDRO: No Allergies Coded Allergies: No Known Allergies (Unverified , 08/16/16) Home Medications Scheduled Aspirin (Aspirin Ec), 81 MG PO DAILY Carvedilol (Coreg), 25 MG PO BID Digoxin (Digoxin), 0.25 MG PO DAILY Lisinopril (Zestril), 10 MG PO DAILY Sertraline (Zoloft), 25 MG PO DAILY Triamterene/Hctz (Dyazide 37.5MG/25MG), 1 TAB PO DAILY Valacyclovir (Valtrex), 500 MG PO DAILY Review of Systems The patient denies chest pain, palpitations, chills, sweats, weight change, nausea, vomiting, diarrhea or constipation, abdominal pain, pelvic pain, blood in urine or stool, dysuria, urinary frequency or urgency, memory loss, loss of consciousness, rash, abnormal bruising or bleeding, imbalance, focal weakness, numbness or tingling in arms or legs, back or neck pain, or night sweats. The review of systems is otherwise negative other than for that already noted above, and at least 10 systems have been reviewed. Physical Exam Vital Signs Date Time Temp Pulse Resp B/P (MAP) Pulse Ox O2 Delivery O2 Flow Rate FiO2 03/30/17 04:22 36.7 69 18 115/78 (90) 99 Room Air 03/30/17 04:22 36.7 69 18 115/78 99 Room Air 03/30/17 03:49 64 16 96 Room Air 03/30/17 03:34 59 16 97 03/30/17 03:33 97/67 03/30/17 03:31 96/70 03/30/17 03:19 59 96 03/30/17 03:04 63 15 96 03/30/17 03:01 98/60 03/30/17 02:49 69 17 95 03/30/17 02:43 37.0 03/30/17 02:34 67 15 94 03/30/17 02:31 109/57 03/30/17 02:19 70 17 98 03/30/17 02:14 67 14 106/58 96 Room Air 03/30/17 02:14 69 03/30/17 00:55 70 16 106/62 94 Room Air 03/30/17 00:28 Room Air 03/30/17 00:13 70 15 102/56 95 Room Air 03/29/17 22:22 96 Room Air 03/29/17 21:26 38.2 72 19 96/59 96 Room Air The patient is awake, alert and oriented 3, normocephalic and atraumatic, sitting upright in bed, looks acutely ill with uncomfortable harsh cough. HEENT--PERRL, EOMI, mucous membranes and oropharynx with thrush. Neck--supple, no JVD or bruits, thyroid normal, trachea midline, no adenopathy. Heart--normal S1 and S2, no extra beats, no murmurs, rubs or gallops. Lungs--few coarse breath sounds bilaterally right worse than left, no respiratory distress, no accessory muscle use. Abdomen--normal bowel sounds and soft, nontender and nondistended, no hernias or masses, no organomegaly. Extremities--no cyanosis, clubbing or edema. There are good distal pulses b/l. Dermatologic--normal skin turgor, normal color, warm and dry, no abnormal lymph nodes, no rash. Neurologic--cranial nerves II through XII grossly intact. Rheumatologic--normal range of motion. Psychiatric--normal affect. Diagnostics Laboratory Results Results Past 24 Hours Test 03/29/17 23:00 03/29/17 23:13 03/29/17 23:23 03/30/17 00:43 Range/Units White Blood Count 7.31 4.8-10.8 K/uL Red Blood Count 4.14 4.7-6.1 M/uL Hemoglobin 12.5 14.0-18.0 g/dL Hematocrit 37.2 42-52 % Mean Corpuscular Volume 89.9 80-100 fL Mean Corpuscular Hemoglobin 30.2 25-34 pg Mean Corpuscular Hemoglobin Concent 33.6 32-36 g/dl Platelet Count 135 130-400 K/uL Mean Platelet Volume 10.2 7.4-10.4 fL Neutrophils (%) (Auto) 72.5 % Lymphocytes (%) (Auto) 13.1 % Monocytes (%) (Auto) 11.9 % Eosinophils (%) (Auto) 1.9 % Basophils (%) (Auto) 0.3 % Neutrophils # (Auto) 5.30 1.4-6.5 K/uL Lymphocytes # (Auto) 0.96 1.2-3.4 K/uL Monocytes # (Auto) 0.87 0.11-0.59 K/uL Eosinophils # (Auto) 0.14 0-0.5 K/uL Basophils # (Auto) 0.02 0-0.2 K/uL RDW Standard Deviation 47.8 36.4-46.3 fL RDW Coefficient of Variation 14.5 11.5-14.5 % Immature Granulocyte % (Auto) 0.3 % Immature Granulocyte # (Auto) 0.02 0.00-0.02 K/uL Prothrombin Time 22.8 9.0-12.0 SECONDS Prothromb Time International Ratio 2.2 0.9-1.1 Activated Partial Thromboplast Time 38.1 21.0-31.0 SECONDS Partial Thromboplastin Ratio 1.5 Sodium Level 133 136-145 mmol/L Potassium Level 3.6 3.5-5.1 mmol/L Chloride Level 98 98-107 mmol/L Carbon Dioxide Level 28 21-32 mmol/L Anion Gap 7.0 3-11 mmol/L Blood Urea Nitrogen 16 7-18 mg/dl Creatinine 1.05 0.60-1.40 mg/dl Est Creatinine Clear Calc Drug Dose 84.9 ml/min Estimated GFR () 97.5 Estimated GFR (Non- 84.1 BUN/Creatinine Ratio 15.5 10-20 Random Glucose 111 70-99 mg/dl Calcium Level 8.5 8.5-10.1 mg/dl Magnesium Level 2.1 1.8-2.4 mg/dl Total Bilirubin 1.0 0.2-1 mg/dl Aspartate Amino Transf (AST/SGOT) 21 15-37 U/L Alanine Aminotransferase (ALT/SGPT) 29 12-78 U/L Alkaline Phosphatase 61 45-117 U/L Troponin I < 0.015 0-0.045 ng/ml Pro-B-Type Natriuretic Peptide 873 0-450 pg/ml Total Protein 7.6 6.4-8.2 gm/dl Albumin 3.7 3.4-5.0 gm/dl Globulin 3.9 2.5-4.0 gm/dl Albumin/Globulin Ratio 0.9 0.9-2 Digoxin Level 1.1 0.8-2.0 ng/ml Bedside Lactic Acid Venous 0.51 0.90-1.70 mmol/L Bedside Troponin I < 0.030 0-0.045 ng/ml Influenza Type A Antigen Neg for Influ A NEG Influenza Type B Antigen Neg for Influ B NEG Urine Color YELLOW Urine Appearance CLEAR CLEAR Urine pH 6.5 4.5-7.5 Urine Specific [place] 1.015 1.000-1.030 Urine Protein NEG NEG Urine Glucose (UA) NEG NEG Urine Ketones TRACE NEG Urine Occult Blood TRACE NEG Urine Nitrite NEG NEG Urine Bilirubin NEG NEG Urine Urobilinogen POS NEG Urine Leukocyte Esterase NEG NEG Urine RBC 5-10 0-4 /hpf Urine WBC 0 0-5 /hpf Urine Epithelial Cells 0-5 0-5 /lpf Urine Bacteria NEG NEG Urine Hyaline Casts 0 0-5 /lpf Microbiology Results 03/29/17 Blood Culture, Received Pending 03/29/17 Blood Culture, Received Pending 03/30/17 Acid Fast Stain, Received Pending 03/30/17 Mycobacterial Culture, Received Pending 03/30/17 Gram Stain, Received Pending 03/30/17 Sputum Culture, Received Pending Diagnostic Radiology Patient Name: JOSHUA PALACIOS Unit Number: [id number] Dictated: 03/29/172258 Transcribed: 03/29/172258 ARG Printed Date/Time: [~ rep prt dt]/[~ rep prt tm] [~ rep ct labl] - [~ rep ct ivnm] [facility] [place] [address] Dictated: 03/29/172258 Transcribed: 03/29/172258 ARG Printed Date/Time: [~ rep prt dt]/[~ rep prt tm] [~ rep ct labl] - [~ rep ct ivnm] CHEST ONE VIEW PORTABLE CLINICAL HISTORY: Sepsis COMPARISON STUDY: No previous studies for comparison. FINDINGS: The heart is enlarged. There are postsurgical changes of a midline sternotomy and by bowel replacement. There are patchy airspace opacities within the right upper lobe, suspicious for pneumonia. Radiographic follow-up subsequent antibiotic therapy is recommended.[ IMPRESSION: Peripheral right upper lobe airspace opacities, suspicious for pneumonia given history of sepsis. Films subsequent to treatment are recommended in follow-up Electronically signed by: Jaren Armstrong M.D. 03/29/2017 11:00 PM Dictated Date/Time: 03/29/2017 10:59 PM The status of this report is Signed. Draft = Not yet reviewed or approved by Radiologist. Signed = Reviewed and approved by Radiologist. <AttendingPhy></AttendingPhy> <FamilyPhy>Teja Hsu M.D.</FamilyPhy> <PrimaryPhy >Teja Hsu M.D.</PrimaryPhy> <UnitNumber>[id number]</UnitNumber> <VisitNumber> [id number]</VisitNumber> <PatientName>JOSHUA PALACIOS</PatientName> < DateOfBirth>1970</DateOfBirth> <Location>[facility]</Location> <ServiceDate>12/06</ServiceDate> <MNE>ESINDI</MNE> <OrderingPhy>Sindhu Gonsales PA-C</ OrderingPhy> <OrderingPhyMNE>f rep ord dr webber</OrderingPhyMNE> <DictatingPhyMNE> f rep dict dr webber</DictatingPhyMNE> <CCListMNE>f rep ct mne</CCListMNE> < AdmittingPhyMNE>f pt admit dr webber</AdmittingPhyMNE> <AttendingPhyMNE>f pt attend dr webber</AttendingPhyMNE> <ConsultingPhyMNE>f pt consult dr webber</ConsultingPhyMNE> <FamilyPhyMNE>f pt fam dr webber</FamilyPhyMNE> <OtherPhyMNE>f pt other dr webber</OtherPhyMNE> < PrimaryPhyMNE>f pt prim care dr webber</PrimaryPhyMNE> <ReferringPhyMNE>f pt referring dr webber</ReferringPhyMNE> EKG EKG shows atrial fibrillation at 73 bpm, left axis deviation, left bundle branch block, no acute ST-T changes. Impression Assessment and Plan Pneumonia involving primarily right upper lobe with partial collapse with ill defined nodular airspace disease seen on chest x-ray/small area of consolidation left lower lobe seen on CT-- Admit to the telemetry unit for close oxygen monitoring and rhythm monitoring. Patient was placed in respiratory isolation due to initial involvement on chest x-ray of primarily right upper lobe. Sputum Gram stain and culture, cytology, AFB smear are all ordered. Vancomycin IV, Zosyn IV, levofloxacin IV and Solu-Medrol IV. Guaifenesin extended release 600 mg by mouth twice a day Xopenex/Atrovent high flow nebulizer every 6 hours while awake and every 2 hours when necessary. Nasal cannula 2 L oxygen, titrate to keep pulse ox greater than or equal to 94 percent. Consult pulmonology. Atrial fibrillation/status post AVR and MVR/chronic anticoagulation with warfarin, initial INR 2.2-- [place]s with [facility] Continue aspirin 81 mg daily, carvedilol 25 mg by mouth twice a day, digoxin 25 g by mouth daily, lisinopril 10 mg by mouth daily and Dyazide 37.5/[address] Alexander Depression-- Continue sertraline 25 mg by mouth daily Viral suppression-- Continue Valtrex 500 mg by mouth daily. Level of Care Telemetry Advanced Directives Existing Advance Directive: No Existing Living Will: No Existing Power of Frame Stripper: No Resuscitation Status FULL RESUSCITATION VTE Prophylaxis VTE Risk Assessment Done? Y/N: Yes Risk Level: Moderate Given or contraindicated: Warfarin (Coumadin) Social Service Consult None Apply
--- NOTE | 2017-03-30 07:53 | DIAGNOSTIC IMAGING REPORT ---
CHEST CT WITH CONTRAST CT DOSE: 364.48 mGycm HISTORY: Fever. Right upper lobe abnormality. TECHNIQUE: Multiaxial CT images of the chest were performed following the intravenous administration of contrast. A dose lowering technique was utilized adhering to the principles of ALARA. COMPARISON: Chest 03/29/2017. FINDINGS: No pneumothorax. No pleural effusions. The central airways are patent. Focal patchy airspace opacities seen within the right upper lobe posteriorly likely representing a pneumonia. Patchy and linear densities within the left lower lobe with volume loss. This favors scarring. However, a pneumonia could also have a similar appearance.. There is also mild interlobular septal thickening within the lung bases. A few scattered punctate calcified granulomas are noted. There are poststernotomy changes. No acute fractures within the sinus osseous structures. Visualized liver, spleen, and adrenal glands are unremarkable. There is left posterior pleural thickening. The heart is enlarged. Peripheral calcifications within the enlarged left atrium. There are also peripheral calcifications within the left ventricle. Normal caliber thoracic aorta with no evidence for dissection. There is an aortic valve prosthesis. The main pulmonary arteries are patent. There is mediastinal and right hilar lymphadenopathy. Dominant right hilar lymph node measures 2.1 x 1.4 cm. There is also a mitral valve prosthesis. IMPRESSION: 1. Patchy airspace opacities within the right upper lobe likely representing a pneumonia. Follow-up chest x-ray in one month is recommended to ensure resolution. 2. Patchy and linear densities within the left lower lobe with mild volume loss and pleural thickening. This is likely chronic and favors scarring. However, a superimposed pneumonia could also have a similar appearance. 3. Mediastinal and right hilar lymphadenopathy which is likely reactive. This also bears watching on future examinations. 4. Mild interlobular septal thickening which could represent a component of congestive change. 5. Cardiomegaly. Electronically signed by: Kaleb Pittman M.D. 03/30/2017 7:51 AM Dictated Date/Time: 03/30/2017 7:45 AM
[2017-03-30] MEDS: LISINOPRIL 10 MG TAB PO SCH (08:44)
[2017-03-30] MEDS: ASPIRIN 81 MG ECTAB PO SCH (08:44)
[2017-03-30] MEDS: TRIAMTERENE/HCTZ 37.5/25MG CAP PO SCH (08:44)
[2017-03-30] MEDS: SERTRALINE HCL 50 MG TAB PO SCH (08:44)
[2017-03-30] MEDS: CARVEDILOL 25 MG TAB PO SCH ×2 (08:44→20:56)
[2017-03-30 09:27] LABS: BASO % 0.3 %; BASO ABS # 0.02 K/uL (0-0.2); EOS % 0.1 %; EOS ABS # 0.01 K/uL (0-0.5); HEMATOCRIT 35.4 % (42-52); HEMOGLOBIN 11.9 g/dL (14.0-18.0); IG# 0.02 K/uL (0.00-0.02); LYMPH % 3.4 %; LYMPH ABS # 0.25 K/uL (1.2-3.4); MEAN CELL VOLUME 89.4 fL (80-100); MEAN CORPUSCULAR HEMOGLOBIN 30.1 pg (25-34); MEAN CORPUSCULAR HGB CONC 33.6 g/dl (32-36); MEAN PLATELET VOLUME 10.3 fL (7.4-10.4); MONO % 4.2 %; MONO ABS # 0.31 K/uL (0.11-0.59); NEUT % 91.7 %; NEUT ABS # 6.83 K/uL (1.4-6.5); PLATELET COUNT 123 K/uL (130-400); RED CELL DISTRIBUTION WIDTH CV 14.6 % (11.5-14.5); RED CELL DISTRIBUTION WIDTH SD 48.2 fL (36.4-46.3); WHITE BLOOD COUNT 7.44 K/uL (4.8-10.8)
[2017-03-30 09:37] LABS: INR 2.2 (0.9-1.1)
[2017-03-30 10:00] LABS: CALCIUM 8.2 mg/dl (8.5-10.1); CREATININE 0.72 mg/dl (0.60-1.40); POTASSIUM 3.4 mmol/L (3.5-5.1)
[2017-03-30] MEDS: PIPERACILL/TAZOBAC IV 3.375 GM in DEXTROSE 5% 100ML IV SCH ×2 (10:08→17:39)
--- NOTE | 2017-03-30 10:16 | Pharmacy Progress Note ---
Pharmacy Abx Initial Consult Date of Service Mar 30, 2017. Pharmacy Dosing Scope Date of Consult: 03/30/17 Consultation requested by: Dr. Aguilar Pharmacy is consulted to initiate Vancomycin and Zosyn IV dosing therapies for pneumonia, order appropriate labs and adjust drug dose/frequency. Subjective The patient is a 46 year old male admitted on Mar 30, 2017 at 03:04. Objective Height (Feet): 6 Height (Inches): 1.00 Weight (Kilograms): 69.100 Vital Signs (Past 12Hrs) Vital Signs Past 12 Hours Date Time Temp Pulse Resp B/P (MAP) Pulse Ox O2 Delivery O2 Flow Rate FiO2 03/30/17 08:00 37.0 85 20 107/71 (83) 94 Room Air 03/30/17 04:22 36.7 69 18 115/78 (90) 99 Room Air 03/30/17 04:22 36.7 69 18 115/78 99 Room Air 03/30/17 03:49 64 16 96 Room Air 03/30/17 03:34 59 16 97 03/30/17 03:33 97/67 03/30/17 03:31 96/70 03/30/17 03:19 59 96 03/30/17 03:04 63 15 96 03/30/17 03:01 98/60 03/30/17 02:49 69 17 95 03/30/17 02:43 37.0 03/30/17 02:34 67 15 94 03/30/17 02:31 109/57 03/30/17 02:19 70 17 98 03/30/17 02:14 67 14 106/58 96 Room Air 03/30/17 02:14 69 03/30/17 00:55 70 16 106/62 94 Room Air 03/30/17 00:28 Room Air 03/30/17 00:13 70 15 102/56 95 Room Air 03/29/17 22:22 96 Room Air Lab Results (24Hrs) Laboratory Tests (24 Hours) Test 03/30/17 09:14 White Blood Count 7.44 K/uL (4.8-10.8) Red Blood Count 3.96 M/uL (4.7-6.1) L Hemoglobin 11.9 g/dL (14.0-18.0) L Hematocrit 35.4 % (42-52) L Mean Corpuscular Volume 89.4 fL (80-100) Mean Corpuscular Hemoglobin 30.1 pg (25-34) Mean Corpuscular Hemoglobin Concent 33.6 g/dl (32-36) Platelet Count 123 K/uL (130-400) L Mean Platelet Volume 10.3 fL (7.4-10.4) Neutrophils (%) (Auto) 91.7 % Lymphocytes (%) (Auto) 3.4 % Monocytes (%) (Auto) 4.2 % Eosinophils (%) (Auto) 0.1 % Basophils (%) (Auto) 0.3 % Neutrophils # (Auto) 6.83 K/uL (1.4-6.5) H Lymphocytes # (Auto) 0.25 K/uL (1.2-3.4) L Monocytes # (Auto) 0.31 K/uL (0.11-0.59) Eosinophils # (Auto) 0.01 K/uL (0-0.5) Basophils # (Auto) 0.02 K/uL (0-0.2) Micro Results Date/Time Source Procedure Growth Status 03/29/17 23:10 Blood Blood Culture Pending Received 03/29/17 23:00 Blood Blood Culture Pending Received 03/30/17 09:01 Nasal MRSA DNA Surveillance Screen Pending Received 03/30/17 05:30 Sputum Expectorated Sputum Acid Fast Stain Pending Received 03/30/17 05:30 Sputum Expectorated Sputum Mycobacterial Culture Pending Received 03/30/17 05:30 Sputum Expectorated Sputum Gram Stain Pending Received 03/30/17 05:30 Sputum Expectorated Sputum Sputum Culture Pending Received Assessment & Plan Assessment 46 year old male Plan Pharmacy has been consulted for treatment of pneumonia Vancomycin IV * Loading dose: 1750 mg (25 mg/kg) * Maintenance dose: 1000 mg IV (15 mg/kg) every 12 hours * Estimated P'kinetic levels: ke= 0.0749/hr, t1/2= 9 hrs * Goal trough level for pneumonia : 15 to 20 mcg/mL * Trough level ordered for 04/01/17 ~30 minutes before the 4th maintenance dose Piperacillin/tazobactam * 3.375 g bolus administered over 30 minutes, then 3.375 g IV extended infusion every 8 hours for CrCl greater than 20 mL/min Pharmacy will continue to follow and will adjust dose/frequency as necessary. Thank you.
[2017-03-30] MEDS ORDERED: POTASSIUM CHLORIDE 10 MEQ TABCR PO STA (11:10)
[2017-03-30] MEDS ORDERED: WARF7.5T PO (11:23)
[2017-03-30 13:23] LABS: INFLUENZA A PCR Neg for Influ A (NEG); INFLUENZA B PCR Neg for Influ B (NEG)
[2017-03-30] MEDS: IPRATROPIUM BROMIDE NEB SOLN 0.02% 2.5 ML VIAL INH SCH ×2 (14:23→20:58)
[2017-03-30] MEDS: LEVALBUTEROL 1.25MG/0.5ML NEB INH SCH ×2 (14:23→20:58)
[2017-03-30] MEDS: VANCOMYCIN INJ 1,000 MG in SODIUM CHLORIDE 0.9% 250ML 250 ML IV SCH (15:47)
[2017-03-30] MEDS ORDERED: WARFARIN SOD 4 MG TAB PO SCH (16:00)
[2017-03-30] MEDS ORDERED: DIGOXIN 0.25 MG TAB PO SCH (16:00)
--- NOTE | 2017-03-30 17:46 | Progress Note ---
Progress Note Date of Service Mar 30, 2017. Progress Note Pt admitted earlier this AM. Chart reviewed, pt seen and examined by me at 1730. He is already feelin gmuch better. Has a dry cough, no hemoptysis. Not hypoxic at all. Is sherley po. No chest pain, not SOB, no abd pain, no diarrhea. He has a h/o congenital heart disease with with first heart surgery at age 8 , then aortic valve replacement at age 20, with repeat AVR and MV ring in his 30s after developing CHF and A-fib. Vitals reviewed, Afib rate controlled on tele. Afebrile since his fever on admission last night. NAD, AAOx3 irreg irreg S2 click, 1/6 TITA at LLSB Lungs with decreased BS at left base and right upper lung field Abd +BS SOft NT ND Ext no edema CT Chest images reviewed by me Labs reviewed 46 yo male la a h/o CHD and AVR mechanical valve, MV ring repair, permanent A -fib, on coumadin, here with multifocal PNA. Left sided findings may be scarring and he does report h/o PTX with chest tube placement after his surgery at age 20. Also has been told he has 60% of his lung function--> restrictive disease perhaps? -continue broad spectrum abx for now -flu swab neg x 2 -is doing very well, could possibly go home later tomorrow evening if doing well -continue to collect AFB smears x 3 but TB suspicion very low -Appreciate Pulmonary input, Cardiology input -increased coumadin to 8mg for today given INR 2.2 with goal 2.5-3.5 -suspect with abx on board, INR may rise anyway -follow INR in AM
[2017-03-30] MEDS ORDERED: HYDROCODONE/HOMATROPINE SYRUP 5MG/1.5MG 5ML UDP PO PRN (19:15)
--- NOTE | 2017-03-30 21:16 | Pulmonary Consultation ---
History General Date of Service: Mar 30, 2017. Chief Complaint: shortness of breath Stated Complaint: Multifocal Pneumonia HPI The patient is a 46 year old male who presents to [facility] with complaints of Pneumonia. The patient's primary care provider is Teja Hsu M.D.. The patient presented with shortness of breath and was admitted for multifocal pneumonia. Influenza A and B antigen was negative. PCR for influenza A and B was added and was also negative. Patient is oxygenating adequately on room air. He is in no distress. He can speak in full sentences with no dyspnea. His fever has resolved. He has no prior history of pneumonia. The patient's story begins in the middle of February when he had viral-like symptoms. Things seem to get better but then just before he felt ill and actually took two or three days of time off work prior to the holidays. He continued feel better but then just prior to became more short of breath, felt febrile at home, and had increased cough. He continued to have progression of the symptoms and presented to urgent care yesterday for evaluation but they were closed. Due to the patient's history of valve repair and replacement as well as a history of atrial fibrillation he decided to present to the emergency department where he was found to be febrile and chest x -ray revealed multifocal areas of suspected pneumonia. Patient was admitted and placed on broad-spectrum antibiotics as well as airborne precautions pending workup. The patient continued with cough but for a little sputum production. Sputum produced was clear with no evidence of hemoptysis. Patient's cough is intermittent and does cause some rib pain at times. The patient has not ambulated today and feels fatigued but feels better since starting antibiotics and fluids. The patient denies any chest pain or tightness. He has no back pain. He has no flank pain. He has no nausea or vomiting or diarrhea. He is a nonsmoker and has very limited ethanol use. He denies any recreational drug use. He is and has no children. 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 He has no recent travel and no exposure to tuberculosis. He has no birds as pets and has not been around birds. He has no recent visits to zoos. He has not been exposed to rodent feces or bird feces. He has no recent traumatic injury. He has no history of blood transfusion. He denies risk factors for HIV Review of Systems A total of 12 systems was reviewed and is negative other than as listed above in the HPI All Other Symptoms All Other Systems: Reviewed and Negative Past Medical History Past Medical History: Medical Problems: (1) Hx of aortic valve stenosis (2) Hx of congestive heart failure (3) Pneumonia (4) Atrial fibrillation (5) chronic anticoagulation with Coumadin since age 24 Past Surgical History: Surgical Problems: (1) Hx of stentless aortic valve replacement (2) Hx mitral valve repair with a ring Family History Noncontributory Social History Hx Tobacco Use In Past Year?: No Smoking Status: Never Smoker Alcohol: socially Drug Use: none Marital status: Housing status: lives with family Occupational Status: employed (Works at [email or web address] in the [employer] department) Immunizations History of Influenza Vaccine: Unknown History of Tetanus Vaccine?: Unknown History of Hepatitis B Vaccine: Unknown History of MDRO History of MDRO: No Allergies Coded Allergies: No Known Allergies (Unverified , 08/16/16) Current Medications Reported Home Medications Medications Dose Route/Sig Max Daily Dose Days Date Category Coumadin (Warfarin Sodium) 7.5 Mg Tab 7.5 Mg PO DAILY 03/30/17 Reported Zoloft (Sertraline HCl) 25 Mg Tab 25 Mg PO DAILY 08/16/16 Reported Aspirin Ec (Aspirin) 81 Mg Tab 81 Mg PO DAILY 08/16/16 Reported Valtrex (Valacyclovir HCl) 500 Mg Tab 500 Mg PO DAILY 08/16/16 Reported Coreg (Carvedilol) 25 Mg Tab 25 Mg PO BID 08/16/16 Reported Digoxin 0.25 Mg Tab 0.25 Mg PO DAILY 08/16/16 Reported Dyazide 37.5MG/25MG (Triamterene/HCTZ) Cap 1 Tab PO DAILY 02/29/08 Reported Zestril (Lisinopril) 10 Mg Tab 10 Mg PO DAILY 02/29/08 Reported Physical Physical Exam Vital Signs: Date Time Temp Pulse Resp B/P (MAP) Pulse Ox O2 Delivery O2 Flow Rate FiO2 03/30/17 20:14 36.5 72 18 111/66 (81) 100 Room Air 03/30/17 20:00 Room Air 03/30/17 19:20 72 16 98 Room Air 03/30/17 16:00 Room Air 03/30/17 15:49 72 03/30/17 15:42 36.7 81 18 102/69 (80) 95 Room Air 03/30/17 14:23 88 18 95 Room Air 03/30/17 12:00 Room Air 03/30/17 11:11 36.8 88 18 94/62 (73) 95 Room Air 03/30/17 08:30 Room Air 03/30/17 08:00 37.0 85 20 107/71 (83) 94 Room Air 03/30/17 04:22 36.7 69 18 115/78 (90) 99 Room Air 03/30/17 04:22 36.7 69 18 115/78 99 Room Air 03/30/17 03:49 64 16 96 Room Air 03/30/17 03:34 59 16 97 03/30/17 03:33 97/67 03/30/17 03:31 96/70 03/30/17 03:19 59 96 03/30/17 03:04 63 15 96 03/30/17 03:01 98/60 03/30/17 02:49 69 17 95 03/30/17 02:43 37.0 03/30/17 02:34 67 15 94 03/30/17 02:31 109/57 03/30/17 02:19 70 17 98 03/30/17 02:14 67 14 106/58 96 Room Air 03/30/17 02:14 69 03/30/17 00:55 70 16 106/62 94 Room Air 03/30/17 00:28 Room Air 03/30/17 00:13 70 15 102/56 95 Room Air 03/29/17 22:22 96 Room Air 03/29/17 21:26 38.2 72 19 96/59 96 Room Air Weight in Kilograms: 69.1 GENERAL : Appears ill. No acute distress EYES: No icterus, gaze conjugate. PERRL NOSE: No evidence of epistaxis. MOUTH: No lesions or candidiasis. Tongue midline NECK: Supple. No JVD LUNGS: Decreased breath sounds. Fine crackles at the bases. No evidence of bronchospasm HEART: Irregular, irregular. Rate controlled ABDOMEN: Soft, NT, ND, BS Present EXTREMITIES: No LE edema, pedal pulses intact NEURO: A&OX3 Diagnostics Labs Results Past 24 Hours Test 03/29/17 23:00 03/29/17 23:13 03/29/17 23:23 03/30/17 00:43 Range/Units White Blood Count 7.31 4.8-10.8 K/uL Red Blood Count 4.14 4.7-6.1 M/uL Hemoglobin 12.5 14.0-18.0 g/dL Hematocrit 37.2 42-52 % Mean Corpuscular Volume 89.9 80-100 fL Mean Corpuscular Hemoglobin 30.2 25-34 pg Mean Corpuscular Hemoglobin Concent 33.6 32-36 g/dl Platelet Count 135 130-400 K/uL Mean Platelet Volume 10.2 7.4-10.4 fL Neutrophils (%) (Auto) 72.5 % Lymphocytes (%) (Auto) 13.1 % Monocytes (%) (Auto) 11.9 % Eosinophils (%) (Auto) 1.9 % Basophils (%) (Auto) 0.3 % Neutrophils # (Auto) 5.30 1.4-6.5 K/uL Lymphocytes # (Auto) 0.96 1.2-3.4 K/uL Monocytes # (Auto) 0.87 0.11-0.59 K/uL Eosinophils # (Auto) 0.14 0-0.5 K/uL Basophils # (Auto) 0.02 0-0.2 K/uL RDW Standard Deviation 47.8 36.4-46.3 fL RDW Coefficient of Variation 14.5 11.5-14.5 % Immature Granulocyte % (Auto) 0.3 % Immature Granulocyte # (Auto) 0.02 0.00-0.02 K/uL Prothrombin Time 22.8 9.0-12.0 SECONDS Prothromb Time International Ratio 2.2 0.9-1.1 Activated Partial Thromboplast Time 38.1 21.0-31.0 SECONDS Partial Thromboplastin Ratio 1.5 Sodium Level 133 136-145 mmol/L Potassium Level 3.6 3.5-5.1 mmol/L Chloride Level 98 98-107 mmol/L Carbon Dioxide Level 28 21-32 mmol/L Anion Gap 7.0 3-11 mmol/L Blood Urea Nitrogen 16 7-18 mg/dl Creatinine 1.05 0.60-1.40 mg/dl Est Creatinine Clear Calc Drug Dose 84.9 ml/min Estimated GFR () 97.5 Estimated GFR (Non- 84.1 BUN/Creatinine Ratio 15.5 10-20 Random Glucose 111 70-99 mg/dl Calcium Level 8.5 8.5-10.1 mg/dl Magnesium Level 2.1 1.8-2.4 mg/dl Total Bilirubin 1.0 0.2-1 mg/dl Aspartate Amino Transf (AST/SGOT) 21 15-37 U/L Alanine Aminotransferase (ALT/SGPT) 29 12-78 U/L Alkaline Phosphatase 61 45-117 U/L Troponin I < 0.015 0-0.045 ng/ml Pro-B-Type Natriuretic Peptide 873 0-450 pg/ml Total Protein 7.6 6.4-8.2 gm/dl Albumin 3.7 3.4-5.0 gm/dl Globulin 3.9 2.5-4.0 gm/dl Albumin/Globulin Ratio 0.9 0.9-2 Digoxin Level 1.1 0.8-2.0 ng/ml Bedside Lactic Acid Venous 0.51 0.90-1.70 mmol/L Bedside Troponin I < 0.030 0-0.045 ng/ml Influenza Type A Antigen Neg for Influ A NEG Influenza Type B Antigen Neg for Influ B NEG Urine Color YELLOW Urine Appearance CLEAR CLEAR Urine pH 6.5 4.5-7.5 Urine Specific [place] 1.015 1.000-1.030 Urine Protein NEG NEG Urine Glucose (UA) NEG NEG Urine Ketones TRACE NEG Urine Occult Blood TRACE NEG Urine Nitrite NEG NEG Urine Bilirubin NEG NEG Urine Urobilinogen POS NEG Urine Leukocyte Esterase NEG NEG Urine RBC 5-10 0-4 /hpf Urine WBC 0 0-5 /hpf Urine Epithelial Cells 0-5 0-5 /lpf Urine Bacteria NEG NEG Urine Hyaline Casts 0 0-5 /lpf Test 03/30/17 09:14 03/30/17 11:30 03/30/17 11:39 Range/Units White Blood Count 7.44 4.8-10.8 K/uL Red Blood Count 3.96 4.7-6.1 M/uL Hemoglobin 11.9 14.0-18.0 g/dL Hematocrit 35.4 42-52 % Mean Corpuscular Volume 89.4 80-100 fL Mean Corpuscular Hemoglobin 30.1 25-34 pg Mean Corpuscular Hemoglobin Concent 33.6 32-36 g/dl Platelet Count 123 130-400 K/uL Mean Platelet Volume 10.3 7.4-10.4 fL Neutrophils (%) (Auto) 91.7 % Lymphocytes (%) (Auto) 3.4 % Monocytes (%) (Auto) 4.2 % Eosinophils (%) (Auto) 0.1 % Basophils (%) (Auto) 0.3 % Neutrophils # (Auto) 6.83 1.4-6.5 K/uL Lymphocytes # (Auto) 0.25 1.2-3.4 K/uL Monocytes # (Auto) 0.31 0.11-0.59 K/uL Eosinophils # (Auto) 0.01 0-0.5 K/uL Basophils # (Auto) 0.02 0-0.2 K/uL RDW Standard Deviation 48.2 36.4-46.3 fL RDW Coefficient of Variation 14.6 11.5-14.5 % Immature Granulocyte % (Auto) 0.3 % Immature Granulocyte # (Auto) 0.02 0.00-0.02 K/uL Prothrombin Time 23.1 9.0-12.0 SECONDS Prothromb Time International Ratio 2.2 0.9-1.1 Sodium Level 132 136-145 mmol/L Potassium Level 3.4 3.5-5.1 mmol/L Chloride Level 100 98-107 mmol/L Carbon Dioxide Level 26 21-32 mmol/L Anion Gap 6.0 3-11 mmol/L Blood Urea Nitrogen 11 7-18 mg/dl Creatinine 0.72 0.60-1.40 mg/dl Est Creatinine Clear Calc Drug Dose 124.0 ml/min Estimated GFR () 128.7 Estimated GFR (Non- 111.1 BUN/Creatinine Ratio 15.0 10-20 Random Glucose 120 70-99 mg/dl Calcium Level 8.2 8.5-10.1 mg/dl Magnesium Level 2.0 1.8-2.4 mg/dl Influenza Type A (RT-PCR) Neg for Influ A NEG Influenza Type B (RT-PCR) Neg for Influ B NEG Microbiology Results 03/29/17 Blood Culture, Received Pending 03/29/17 Blood Culture, Received Pending 03/30/17 MRSA DNA Surveillance Screen - Final, Complete Specimen Negative for MRSA by DNA Probe 03/30/17 Acid Fast Stain, Received Pending 03/30/17 Mycobacterial Culture, Received Pending 03/30/17 Gram Stain - Final, Resulted 03/30/17 Sputum Culture, Resulted Pending Diagnostic Radiology CHEST CT WITH CONTRAST CT DOSE: 364.48 mGycm HISTORY: Fever. Right upper lobe abnormality. TECHNIQUE: Multiaxial CT images of the chest were performed following the intravenous administration of contrast. A dose lowering technique was utilized adhering to the principles of ALARA. COMPARISON: Chest 03/29/2017. FINDINGS: No pneumothorax. No pleural effusions. The central airways are patent. Focal patchy airspace opacities seen within the right upper lobe posteriorly likely representing a pneumonia. Patchy and linear densities within the left lower lobe with volume loss. This favors scarring. However, a pneumonia could also have a similar appearance.. There is also mild interlobular septal thickening within the lung bases. A few scattered punctate calcified granulomas are noted. There are poststernotomy changes. No acute fractures within the sinus osseous structures. Visualized liver, spleen, and adrenal glands are unremarkable. There is left posterior pleural thickening. The heart is enlarged. Peripheral calcifications within the enlarged left atrium. There are also peripheral calcifications within the left ventricle. Normal caliber thoracic aorta with no evidence for dissection. There is an aortic valve prosthesis. The main pulmonary arteries are patent. There is mediastinal and right hilar lymphadenopathy. Dominant right hilar lymph node measures 2.1 x 1.4 cm. There is also a mitral valve prosthesis. IMPRESSION: 1. Patchy airspace opacities within the right upper lobe likely representing a pneumonia. Follow-up chest x-ray in one month is recommended to ensure resolution. 2. Patchy and linear densities within the left lower lobe with mild volume loss and pleural thickening. This is likely chronic and favors scarring. However, a superimposed pneumonia could also have a similar appearance. 3. Mediastinal and right hilar lymphadenopathy which is likely reactive. This also bears watching on future examinations. 4. Mild interlobular septal thickening which could represent a component of congestive change. 5. Cardiomegaly. Electronically signed by: Kaleb Pittman M.D. 03/30/2017 7:51 AM Impression Assessment and Plan MULTIFOCAL PNEUMONIA * Antigen and PCR negative for influenza A and B * Most likely a viral illness that developed into a bacterial pneumonia * Adequate response with antibiotics and fluids since admission * We will prescribe Hycodan syrup for cough at bedtime * Encourage incentive spirometry and ambulation * Await blood cultures * Await sputum cultures * Patient currently on airborne precautions pending acid-fast bacilli testing - no significant risk factors for tuberculosis - definitive testing negative for influenza * Oxygenating well on room air HISTORY OF AORTIC VALVE REPLACEMENT / MITRAL VALVE REPAIR * Continue broad-spectrum antibiotics specifically with coverage for staph aureus pending blood cultures * Hemodynamically stable * Auscultation with clear murmur from aortic valve ATRIAL FIBRILLATION * Rate controlled * Chronic anticoagulation since age 24 * Continue on telemetry DVT PROPHYLAXIS * Continue anticoagulation for atrial fibrillation * Increase ambulation as tolerated Thank you for including us in the care of this patient. Please refer to Dr. Lagos's addendum for further recommendations Physician Supervision Note: I was present with Bobby Werner PA-C during the history and exam. I discussed the case with him and agree with the findings and plan as documented in the note. Any exceptions or clarifications are listed here: Patient with h/o valvular disease s/p AV replacement and MV repair, a-fib, on chronic Coumadin, admitted for multifocal PNA. Testing for influenza was negative He feels better today already, comfortable on room air. Still has a cough Continue on broad-spectrum Abx until the cultures return Check procalcitonin On isolation to rule out TB. I really doubt TB, he has no risk factors and the history does not fit well either. Documented By: Kalia Lagos MD
[2017-03-31 00:18] VITALS: BP 107/61; PULSE 64; TEMP 36.6; O2SAT 96
[2017-03-31 01:55] VITALS: PULSE 69; O2SAT 98
[2017-03-31] MEDS: IPRATROPIUM BROMIDE NEB SOLN 0.02% 2.5 ML VIAL INH SCH ×2 (01:55→07:41)
[2017-03-31] MEDS: LEVALBUTEROL 1.25MG/0.5ML NEB INH SCH ×2 (01:55→07:41)
[2017-03-31] MEDS: PIPERACILL/TAZOBAC IV 3.375 GM in DEXTROSE 5% 100ML IV SCH ×2 (02:06→09:49)
[2017-03-31 03:23] VITALS: BP 109/69; PULSE 71; TEMP 36.6; O2SAT 96
[2017-03-31] MEDS: VANCOMYCIN INJ 1,000 MG in SODIUM CHLORIDE 0.9% 250ML 250 ML IV SCH (04:39)
[2017-03-31] MEDS: LEVOFLOXACIN / D5W 500 MG in PREMIXED IN D5W 100 ML IV SCH (04:48)
[2017-03-31 06:38] LABS: BASO % 0.1 %; BASO ABS # 0.01 K/uL (0-0.2); HEMATOCRIT 33.8 % (42-52); HEMOGLOBIN 11.4 g/dL (14.0-18.0); IG# 0.03 K/uL (0.00-0.02); LYMPH % 6.8 %; LYMPH ABS # 0.69 K/uL (1.2-3.4); MEAN CELL VOLUME 89.7 fL (80-100); MEAN CORPUSCULAR HEMOGLOBIN 30.2 pg (25-34); MEAN CORPUSCULAR HGB CONC 33.7 g/dl (32-36); MEAN PLATELET VOLUME 9.7 fL (7.4-10.4); MONO % 9.2 %; MONO ABS # 0.94 K/uL (0.11-0.59); NEUT % 83.6 %; PLATELET COUNT 121 K/uL (130-400); RED CELL DISTRIBUTION WIDTH CV 14.5 % (11.5-14.5); RED CELL DISTRIBUTION WIDTH SD 47.9 fL (36.4-46.3); WHITE BLOOD COUNT 10.17 K/uL (4.8-10.8)
[2017-03-31 06:51] LABS: INR 2.7 (0.9-1.1); PTT PATIENT 39.7 SECONDS (21.0-31.0)
[2017-03-31 07:17] LABS: ALBUMIN 3.1 gm/dl (3.4-5.0); CALCIUM 8.5 mg/dl (8.5-10.1); CREATININE 0.65 mg/dl (0.60-1.40); POTASSIUM 3.5 mmol/L (3.5-5.1)
[2017-03-31 07:20] LABS: TOTAL PROTEIN 6.7 gm/dl (6.4-8.2)
--- NOTE | 2017-03-31 07:40 | DIAGNOSTIC IMAGING REPORT ---
CHEST ONE VIEW PORTABLE HISTORY: Hypoxia COMPARISON: Chest 03/29/2017. FINDINGS: No pneumothorax. No pleural effusions. The heart remains mildly enlarged. Postoperative changes and cardiac valve prostheses are again noted. Mild central pulmonary vascular congestion without overt edema. Small right midlung zone airspace opacity remains unchanged. Right hilar prominence is also unchanged consistent with the lymphadenopathy. IMPRESSION: 1. Small right midlung zone airspace opacity which likely represents a pneumonia. One month chest x-ray follow-up is recommended to ensure resolution. 2. Right hilar lymphadenopathy persists. 3. Mild pulmonary vascular congestion without overt edema. Electronically signed by: Kaleb Pittman M.D. 03/31/2017 7:39 AM Dictated Date/Time: 03/31/2017 7:37 AM
[2017-03-31 07:42] VITALS: PULSE 82; O2SAT 98
[2017-03-31] MEDS: CARVEDILOL 25 MG TAB PO SCH (09:49)
[2017-03-31] MEDS: ASPIRIN 81 MG ECTAB PO SCH (09:49)
[2017-03-31] MEDS: SERTRALINE HCL 50 MG TAB PO SCH (09:50)
[2017-03-31] MEDS: TRIAMTERENE/HCTZ 37.5/25MG CAP PO SCH (09:50)
[2017-03-31] MEDS: LISINOPRIL 10 MG TAB PO SCH (09:50)
[2017-03-31] MEDS ORDERED: LEVO1TAB35 PO (10:12)
[2017-03-31] MEDS ORDERED: HYCUDL5 PO (10:12)
[2017-03-31] MEDS ORDERED: GUAI1TAB55 PO (10:12)
[2017-03-31] MEDS ORDERED: CMD4 PO (10:12)
--- NOTE | 2017-03-31 10:24 | Discharge Instructions ---
Discharge Instructions Date of Service Mar 31, 2017. Admission Reason for Admission: Pneumonia Discharge Discharge Diagnosis / Problem: Community acquired pneumonia Discharge Goals Goal(s): Decrease discomfort, Improve function Activity Recommendations Activity Limitations: resume your previous activity . Instructions / Follow-Up Instructions / Follow-Up Medications: - LEVAQUIN: 750mg daily, take for 5 more days and then stop - MUCINEX: script sent, if too expensive can just buy over the counter, take 1200mg twice a day for 5 days - LEVALBUTEROL: inhaler, use every 6 hours as needed - COUMADIN: dose increased to 8mg Pneumonia: responding well, afebrile, WBC normal, vitals stable, no oxygen requirements can be discharged to home, follow up next week with Dr. Hsu Artificial aortic valve: of note, your INR was subtherapeutic at 2.2, Coumadin increased to 8mg daily, INR 2.7 today please follow INR closely with PCP, goal is 2.5-3.5 FOLLOW UP - call for appointment with Dr. Hsu in one week, request a hospital follow up visit for pneumonia Current Hospital Diet Patient's current hospital diet: Regular Diet Discharge Diet Recommended Diet: Regular Diet Pending Studies Studies pending at discharge: no Medical Emergencies . Who to Call and When: Medical Emergencies: If at any time you feel your situation is an emergency, please call 911 immediately. . Non-Emergent Contact Non-Emergency issues call your: Primary Care Provider Call Non-Emergent contact if: you have a fever, you have any medication questions . . "Provider Documentation" section prepared by Mook Galeano. . VTE Core Measure Inpt VTE Proph given/why not?: Warfarin (Coumadin) [place] Drug Monitoring Program Search Results: no issues identified
[2017-03-31] MEDS ORDERED: LEVA45AE INH (10:25)
[2017-03-31 10:28] VITALS: BP 109/69; PULSE 82; TEMP 36.6; O2SAT 98
--- NOTE | 2017-03-31 11:07 | Pulmonology Progress Note ---
Pulmonary Progress Note Date of Service Mar 31, 2017. Attending Dr. Lagos Subjective Patient continues with some fatigue but overall is feeling better. Cough better controlled. Cough with a feeling of a "rough throat". No dysphagia or aspiration. Afebrile. Ambulating in the room but not in the halls. No sputum production. No new complaints Objective Vital Signs - as noted below Laboratory Data - as noted below Physical Exam: General - NAD Eyes - No icterus, gaze conjugate ENT - Mucosa moist, no lesions or candidiasis Neck - Supple, No JVD. No stridor Lungs - No bronchospasm or rhonchi. Fine bibasilar rales. Good aeration in all lung zones Heart - Regular, rate controlled Abdomen - Soft, NT, ND, BS present Extremities - No edema, pedal pulses intact Neuro - A&OX3 Assessment & Plan MULTIFOCAL PNEUMONIA * Most likely bacterial infection secondary to viral illness * Patient continues to oxygenate well on room air * Continues with some crackles at the bases but overall his respiratory status has improved significantly * Would continue full course of antibiotics and follow up with PCP in 2 weeks. * Patient should have a 2 view CXR at that time for clearing * No bronchospasm or indication of need for nebulizer or bronchodilators AORTIC VALVE REPLACEMENT/MITRAL VALVE REPAIR/ATRIAL FIBRILLATION * Blood cultures negative X 2 * Continue Coumadin DISPOSITION * OK to discharge home per pulmonary * Follow up 2 view CXR in 2 weeks with PCP follow up appt Thank you for including us in the care of this patient Data Medications: Current Inpatient Medications Medications (Trade) Dose Ordered Sig/Ania Route Start Time Stop Time Status Last Admin Dose Admin Ioversol (Optiray 320) 100 ml UD PRN IV 03/30/17 01:30 04/03/17 01:29 Aspirin (Ecotrin Tab) 81 mg DAILY PO 03/30/17 09:00 04/29/17 08:59 03/31/17 09:49 81 MG Carvedilol (Coreg Tab) 25 mg BID PO 03/30/17 09:00 04/29/17 08:59 03/31/17 09:49 25 MG Digoxin (Lanoxin Tab) 0.25 mg DAILY@1600 PO 03/30/17 16:00 04/29/17 15:59 03/30/17 15:49 0.25 MG Lisinopril (Zestril Tab) 10 mg DAILY PO 03/30/17 09:00 04/29/17 08:59 03/31/17 09:50 10 MG Sertraline HCl (Zoloft Tab) 25 mg DAILY PO 03/30/17 09:00 04/29/17 08:59 03/31/17 09:50 25 MG Triamterene/HCTZ (Dyazide 37.5/25 Mg Cap) 1 cap DAILY PO 03/30/17 09:00 04/29/17 08:59 03/31/17 09:50 1 CAP Valacyclovir HCl (Valtrex Tab) 500 mg DAILY PO 03/30/17 09:00 04/29/17 08:59 03/31/17 09:49 500 MG Ondansetron HCl (Zofran Odt) 8 mg Q6H PRN PO 03/30/17 02:00 04/29/17 01:59 Ondansetron HCl (Zofran Inj) 4 mg Q6H PRN IV 03/30/17 02:00 04/29/17 01:59 Levofloxacin 500 mg/Prmx 100 ml @ 100 mls/hr Q24H IV 03/30/17 04:30 04/06/17 04:29 03/31/17 04:48 100 MLS/HR Ipratropium [place] (Atrovent 0.02% 0.5MG/2.5ML Neb) 0.5 mg Q6R INH 03/30/17 09:00 04/29/17 08:59 03/31/17 07:41 0.5 MG Levalbuterol (Xopenex 1.25MG/ 0.5ML Neb) 1.25 mg Q6R INH 03/30/17 09:00 04/29/17 08:59 03/31/17 07:41 1.25 MG Ipratropium [place] (Atrovent 0.02% 0.5MG/2.5ML Neb) 0.5 mg Q2H PRN INH 03/30/17 04:15 04/29/17 04:14 Levalbuterol (Xopenex 1.25MG/ 0.5ML Neb) 1.25 mg Q2H PRN INH 03/30/17 04:15 04/29/17 04:14 Piperacillin Sod/ Tazobactam Sod 3.375 gm/Dextrose 115 ml @ 28.75 mls/ hr Q8H IV 03/30/17 10:00 04/06/17 09:59 03/31/17 09:49 28.75 MLS/HR Piperacillin Sod/ Tazobactam Sod (Consult) 1 ea UD PRN N/A 03/30/17 04:30 04/29/17 04:29 Vancomycin HCl (Consult) 1 ea UD PRN N/A 03/30/17 04:30 04/29/17 04:29 Miscellaneous (Ppd Check) 1 ea Q48H N/A 04/01/17 04:45 04/01/17 04:46 Vancomycin HCl 1000 mg/Sodium Chloride 270 ml @ 125 mls/hr Q12H IV 03/30/17 16:00 04/06/17 03:59 03/31/17 04:39 125 MLS/HR Warfarin Sodium (Coumadin Tab) 8 mg DAILY@16 PO 03/30/17 16:00 04/29/17 15:59 03/30/17 15:50 8 MG Hydrocodone Bit/ Homatropine Methylb (Hycodan Syrup) 5 ml HS PRN PO 03/30/17 19:15 04/13/17 19:14 03/30/17 20:56 5 ML Vital Signs: Date Time Temp Pulse Resp B/P (MAP) Pulse Ox O2 Delivery O2 Flow Rate FiO2 03/31/17 10:28 36.6 82 16 98 Room Air 03/31/17 08:00 Room Air 03/31/17 07:42 82 16 98 Room Air 03/31/17 04:00 Room Air 03/31/17 03:23 36.6 71 19 109/69 (82) 96 Room Air 03/31/17 01:55 69 16 98 Room Air 03/31/17 00:18 36.6 64 17 107/61 (76) 96 Room Air 03/30/17 23:59 Room Air 03/30/17 20:14 36.5 72 18 111/66 (81) 100 Room Air 03/30/17 20:00 Room Air 03/30/17 19:20 72 16 98 Room Air 03/30/17 16:00 Room Air 03/30/17 15:49 72 03/30/17 15:42 36.7 81 18 102/69 (80) 95 Room Air 03/30/17 14:23 88 18 95 Room Air 03/30/17 12:00 Room Air 03/30/17 11:11 36.8 88 18 94/62 (73) 95 Room Air Laboratory Results: Last 24 Hours Test 03/30/17 11:30 03/31/17 06:25 Influenza Type A (RT-PCR) Neg for Influ A Influenza Type B (RT-PCR) Neg for Influ B White Blood Count 10.17 K/uL Red Blood Count 3.77 M/uL Hemoglobin 11.4 g/dL Hematocrit 33.8 % Mean Corpuscular Volume 89.7 fL Mean Corpuscular Hemoglobin 30.2 pg Mean Corpuscular Hemoglobin Concent 33.7 g/dl Platelet Count 121 K/uL Mean Platelet Volume 9.7 fL Neutrophils (%) (Auto) 83.6 % Lymphocytes (%) (Auto) 6.8 % Monocytes (%) (Auto) 9.2 % Eosinophils (%) (Auto) 0.0 % Basophils (%) (Auto) 0.1 % Neutrophils # (Auto) 8.50 K/uL Lymphocytes # (Auto) 0.69 K/uL Monocytes # (Auto) 0.94 K/uL Eosinophils # (Auto) 0.00 K/uL Basophils # (Auto) 0.01 K/uL RDW Standard Deviation 47.9 fL RDW Coefficient of Variation 14.5 % Immature Granulocyte % (Auto) 0.3 % Immature Granulocyte # (Auto) 0.03 K/uL Prothrombin Time 28.3 SECONDS Prothromb Time International Ratio 2.7 Activated Partial Thromboplast Time 39.7 SECONDS Partial Thromboplastin Ratio 1.5 Sodium Level 136 mmol/L Potassium Level 3.5 mmol/L Chloride Level 100 mmol/L Carbon Dioxide Level 29 mmol/L Anion Gap 7.0 mmol/L Blood Urea Nitrogen 9 mg/dl Creatinine 0.65 mg/dl Est Creatinine Clear Calc Drug Dose 134.1 ml/min Estimated GFR () 134.3 Estimated GFR (Non- 115.9 BUN/Creatinine Ratio 14.4 Random Glucose 125 mg/dl Calcium Level 8.5 mg/dl Magnesium Level 2.2 mg/dl Total Bilirubin 0.9 mg/dl Direct Bilirubin 0.4 mg/dl Aspartate Amino Transf (AST/SGOT) 17 U/L Alanine Aminotransferase (ALT/SGPT) 30 U/L Alkaline Phosphatase 48 U/L Total Protein 6.7 gm/dl Albumin 3.1 gm/dl Procalcitonin < 0.05 ng/ml
--- NOTE | 2017-03-31 14:23 | Discharge Summary ---
Discharge Summary Date of Service Mar 31, 2017. Discharge Summary Admission Date: Mar 30, 2017 at 03:04 Discharge Date: Mar 31, 2017 Discharge Disposition: Home Principal Diagnosis: Community acquired pneumonia Problems/Secondary Diagnoses: Atrial fibrillation valve replacement Immunizations: Have You Had Influenza Vaccine: Unknown History of Tetanus Vaccine?: Unknown History of Hepatitis B Vaccine: Unknown Procedures: none Consultations: Pulmonology Medication Reconciliation New Medications: Guaifenesin Ext Rel (Mucinex Ext Rel) 600 Mg Tab 1200 MG PO Q12 for 5 Days, #20 TAB Levalbuterol Tartrate (Levalbuterol Tartrate Hfa) 45 Mcg/Act Aer 2 PUFFS INH Q6 PRN for Shortness of Breath, #1 INHALER 0 Refills Levofloxacin (Levaquin) 750 Mg Tab 750 MG PO DAILY for 5 Days, #5 TAB Hydrocodone/Homatropine (Hydromet 5-1.5 mg/5Ml) 5 Ml/Cup Syrp 5 ML PO HS PRN for Cough, #60 ML 0 Refills Warfarin Sod (Coumadin) 4 Mg Tab 8 MG PO DAILY@16, #60 TAB 1 Refill Continued Medications: Aspirin (Aspirin Ec) 81 Mg Tab 81 MG PO DAILY Carvedilol (Coreg) 25 Mg Tab 25 MG PO BID, TAB Digoxin (Digoxin) 0.25 Mg Tab 0.25 MG PO DAILY Lisinopril (Zestril) 10 Mg Tab 10 MG PO DAILY Sertraline (Zoloft) 25 Mg Tab 25 MG PO DAILY, TAB Triamterene/Hctz (Dyazide 37.5MG/25MG) Cap 1 TAB PO DAILY Valacyclovir (Valtrex) 500 Mg Tab 500 MG PO DAILY, TAB Discontinued Medications: Warfarin Sodium (Coumadin) 7.5 Mg Tab 7.5 MG PO DAILY, TAB Discharge Exam Patient feeling well, breathing room air comfortably, minimal cough, no sputum production, feels like he has some sputum in his upper chest. Eating well. No difficulty urinating or moving bowels. No fever since admission, WBC normal. Discussed with pulmonologysami for discharge. Review of Systems: Constitutional: + weakness, No fever, No chills, No sweats, No weight loss, No fatigue, No problem reported Eyes: No worsening of vision, No eye pain, No redness, No discharge, No diplopia, No problem reported ENT: No hearing loss, No unusual epistaxis, No nasal symptoms, No sore throat, No tinnitus, No dental problems, No trouble swallowing, No problem reported Respiratory: + cough, + dyspnea on exertion, No sputum, No wheezing, No shortness of breath, No dyspnea at rest, No hemoptysis, No problem reported Cardiovascular: No chest pain, No orthopnea, No PND, No edema, No claudication, No palpitations, No problem reported Abdomen: No pain, No nausea, No vomiting, No diarrhea, No constipation, No GI bleeding, No problem reported Musculoskeletal: No joint pain, No muscle pain, No swelling, No calf pain, No problem reported Genitourinary - Male: No hematuria, No dysuria, No urinary frequency, No urinary urgency Neurologic: No memory loss, No paralysis, No weakness, No numbness/tingling , No vertigo, No balance problems, No problem reported Psychiatric: No depression symptoms, No anhedonism, No anxiety, No insomnia , No substance abuse, No problem reported Endocrine: No fatigue, No excessive thirst, No excessive urination, No problem reported Hematologic / Lymphatic: No abnormal bleeding/bruising, No clotting problems , No swollen lymph nodes, No night sweats, No problem reported Integumentary: No rash, No itch, No new/changing skin lesions, No color change, No bleeding, No problem reported Physical Exam: General Appearance: WD/WN, no apparent distress Eyes: normal inspection, EOMI, sclerae normal ENT: normal ENT inspection, hearing grossly normal, pharynx normal Neck: supple, no adenopathy, no JVD, trachea midline Respiratory/Chest: chest non-tender, lungs clear, normal breath sounds, no respiratory distress, no accessory muscle use Cardiovascular: no edema, no gallop, no JVD, no murmur, + irregularly irregular, + pertinent finding (artificial click) Abdomen / GI: normal bowel sounds, non tender, soft, no organomegaly Extremities: normal inspection, no calf tenderness, normal capillary refill , no pedal edema, normal range of motion, pelvis stable 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, no motor/sensory deficits , alert, normal mood/affect, normal reflexes, oriented x 3 Skin: normal color, warm/dry, no rash Lymphatic: no adenopathy Hospital Course 46 yo male admitted for pneumonia, on presentation he had fever, cough, dyspnea , poor appetite and found to have right upper lobe infiltrate on CXR and confirmed on CT chest - CAP: responded well to antibiotics, afebrile, normal WBC, coughing less, no oxygen requirements eating well, vitals stable will d/c home on Levaquin for 5 more days provide with Mucinex, Levalbuterol inhaler, Hycodan for cough suppression at night follow up in one week with Dr. Hsu NEEDS REPEAT CT CHEST IN 4-6 WEEKS TO ASSESS PNEUMONIA AND HILAR ADENOPATHY - Paroxysmal atrial fibrillation, s/p valve replacement INR was sub therapeutic at 2.2 on day of admission, Coumadin increased to 8mg daily INR 2.7 today will continue on 8mg daily for now, follow up with INR with PCP Total Time Spent: Greater than 30 minutes This includes examination of the patient, discharge planning, medication reconciliation, and communication with other providers. Discharge Instructions Please refer to the electronic Patient Visit Report (Discharge Instructions) for additional information. Follow-Up Dr. Hsu in one week Additional Copies To Avelino Alexander, ; Teja Hsu M.D.
[2017-04-01] MEDS ORDERED: VANCOMYCIN TROUGH ONE (03:30)
[2017-04-01] MEDS ORDERED: PPD CHECK SCH (04:45)
== END 2017-03-31 12:19 | disposition home or self-care (01) | DRG 194 ==
LOC: C.EDB 21:03 → C.2T 03-30 03:04 → ENRESERV 03-30 03:16
PROVIDERS: ADMIT Hospitalist; ATTEND Internal Medicine
DX: J18.9 Pneumonia, unspecified organism (principal); J98.19 Other pulmonary collapse; R79.1 Abnormal coagulation profile; I48.0 Paroxysmal atrial fibrillation; F32.9 Major depressive disorder, single episode, unspecified; Z87.74 Personal history of (corrected) congenital malformations of heart and circulatory system; Z86.79 Personal history of other diseases of the circulatory system; Z95.2 Presence of prosthetic heart valve; Z79.01 Long term (current) use of anticoagulants; Z79.82 Long term (current) use of aspirin; Z79.899 Other long term (current) drug therapy